=== PATIENT | female | born 1945 | race Caucasian/White ===

== ENCOUNTER 2019-01-14 02:46 | Emergency (ER) | payer MEDICARE, OTHER ==
[~2019-01-14] VITALS: Ht 170.2 cm; Wt 81.6 kg
[2019-01-14] MEDS ORDERED: METHYLPREDNISOLONE SOD SUCC 125 MG/2ML VIAL IV STA (02:51)
[2019-01-14] MEDS ORDERED: SODIUM CHLORIDE 0.9% 1000ML 1,000 ML IV STA (02:51)
[2019-01-14 03:00] LABS: BASOPHILS % 0.5 % (0.0-1.0); EOSINOPHILS # (AUTO) 0.1 (0.0-0.4); EOSINOPHILS % 1.8 % (0.0-6.0); HEMATOCRIT 40.1 % (34.2-44.1); HEMOGLOBIN 12.6 g/dL (12.0-16.0); LYMPHOCYTES # (AUTO) 2.1 (1.0-3.2); LYMPHOCYTES % 26.8 % (18.0-39.1); MEAN CORPUSCULAR HEMOGLOBIN 28.8 pg (28-32); MEAN CORPUSCULAR HGB CONC 31.4 g/dL (31-35); MEAN CORPUSCULAR VOLUME 91.6 fL (81-99); MONOCYTES # (AUTO) 0.9 (0.2-0.8); MONOCYTES % 10.9 % (4.4-11.3); NEUTROPHILS # (AUTO) 4.7 (2.1-6.9); NEUTROPHILS % 59.6 % (38.7-80.0); PLATELET COUNT 295 x10e3/uL (140-360); RED BLOOD COUNT 4.38 x10e6/uL (3.6-5.1); RED CELL DISTRIBUTION WIDTH 14.1 % (11.7-14.4)
[2019-01-14] MEDS ORDERED: ALBUTEROL/IPRATROPIUM 3 ML NEB NEB ONE (03:00)
[2019-01-14 03:07] LABS: INR 0.81; PROTHROMBIN TIME 11.6 seconds (11.9-14.5)
[2019-01-14 03:08] LABS: PARTIAL THROMBOPLASTIN TIME 28.9 seconds (23.8-35.5)
[2019-01-14 03:17] LABS: ALBUMIN 3.6 g/dL (3.5-5.0); ALBUMIN/GLOBULIN RATIO 1.2 (0.8-2.0); CALCIUM 9.4 mg/dL (8.4-10.2); CREATININE, SERUM 0.92 mg/dL (0.57-1.11); MAGNESIUM 2.2 MG/DL (1.3-2.1)
[2019-01-14 03:24] LABS: CREATINE KINASE MB 2.5 ng/mL (0-5.0)
[2019-01-14 03:27] LABS: BILIRUBIN,URINE NEGATIVE (NEGATIVE); CLARITY,URINE SL CLOUDY (CLEAR); COLOR,URINE YELLOW (YELLOW); KETONES,URINE NEGATIVE (NEGATIVE); LEUKOCYTE ESTERASE ,URINE MODERATE (NEGATIVE); NITRITE,URINE NEGATIVE (NEGATIVE); PROTEIN,URINE DIPSTICK NEGATIVE (NEGATIVE); URINE UROBILINOGEN 0.2 mg/dL (0.2 - 1)
[2019-01-14 03:37] LABS: B-TYPE NATRIURETIC PEPTIDE2 23.5 pg/mL (0-100)
[2019-01-14 03:38] LABS: BACTERIA,URINE FEW /HPF; EPITHELIAL CELLS,URINE FEW /LPF; TRANSITIONAL EPI CELLS,URINE MANY; WBC,URINE (MAN) >50 /HPF (0-5)
--- NOTE | 2019-01-14 03:53 | Diagnostic Imaging Report ---
EXAMINATION: CHEST 2 VIEWS INDICATION: SOB and COUGH COMPARISON: . FINDINGS: TUBES and LINES: None. LUNGS: The lungs are hyperinflated consistent with emphysema. Mild coarsening of the pulmonary interstitium bilaterally. Mild prominence of the central pulmonary vasculature bilaterally. PLEURA: No pleural effusion or pneumothorax. HEART AND MEDIASTINUM: Cardiac size is mildly enlarged. BONES AND SOFT TISSUES: No acute osseous lesion. Soft tissues are unremarkable. UPPER ABDOMEN: No free air under the diaphragm. IMPRESSION: 1. Bilateral pulmonary disease/COPD. 2. Mild bilateral pulmonary venous congestion. Signed by: Dr. Richie Arreguin M.D. on 01/14/2019 3:50 AM
[2019-01-14] MEDS ORDERED: CEFTRIAXONE SOD 1 GM/NS 50 ML 50 ML IV ONE (04:00)
[2019-01-14 04:23] VITALS: BP 111/53
== END 2019-01-14 04:32 | disposition home or self-care (01) ==
LOC: ER 02:46
DX: J44.1 Chronic obstructive pulmonary disease with (acute) exacerbation (principal); N30.91 Cystitis, unspecified with hematuria; I10 Essential (primary) hypertension; E78.5 Hyperlipidemia, unspecified; Z99.81 Dependence on supplemental oxygen; Z87.891 Personal history of nicotine dependence
CPT/HCPCS: 36415; 71046; 80053; 81001; 82550; 82553; 83605; 83735; 83880; 84484; 85025; 85610; 85730; 87040; 87086; 93005; 94640; 96374; 99284; J0696; J2930; J7030

== ENCOUNTER 2019-08-21 12:25 | Observation (INO) | payer OTHER ==
[~2019-08-21] VITALS: Ht 170.2 cm; Wt 81.6 kg
[~2019-08-21 12:25] MED LIST: ALBUTEROL0.63 MG/3 NEB; AZELASTINE137 MCG/0.; CALAN SR120 MG PO; COMBIVENT RESPIM4 GM; ECOTRIN325 MG PO; ENALAPRIL MALE2.5 MG; ENALAPRIL MALEA20 MG PO; IPRATROPIUM BROMIDE IH; PULMICORT90 MCG/AER INH; SEREVENT DISKU50 MCG INH; SIMVASTATIN20 MG PO; VENTOLIN HFA18 GM INH
--- OUTSIDE RECORDS SUMMARY | 2019-08-21 12:30 | XMS REPORT ---
Author Author [facility] t Organization [facility] Address [address] [place] [id number] Phone Unavailable Care Team Providers Care Solar Energy Specialist Name Role Phone NO, PCP PCP Unavailable Milton TIMMONS Attphys Unavailable Melissa MALONE Attphys Unavailable Payers Payer Name Policy Type Policy Number Effective Date Expiration Date Lizzy Ramachandran [id number] 2015 00:00:00 [facility] [employer] [id number] [facility] Problems Condition Name Condition Details Condition Category Status Onset Date Resolution Date Last Treatment Date Treating Clinician Comments Source Sensorineural hearing loss, bilateral Sensorineural hearing loss, bilateral Disease Active 2016-12-24 00:00:00 Alberto Harris Hearing loss Hearing loss Disease Active 2016-12-24 00:00:00 Alberto Harris Allergies, Adverse Reactions, Alerts Allergy Name Allergy Type Status Severity Reaction(s) Onset Date Inacti ve Date Treating Clinician Comments Source Codeine Propensity to adverse reactions to drug Active 2016-12-24 00:00:00 Alberto Harris Codeine Allergy to Substance Active Mild HIVES 2015-07-17 00:00:00 [facility] Social History Social Habit Start Date Stop Date Quantity Comments Source Sex Assigned At Dany chandharvey Harris Alcohol intake 2016-12-24 00:00:00 2016-12-24 00:00:00 Current non-drinker of alcohol (finding) Alberto Harris Smoking Status Start Date Stop Date Source Former smoker 2016-12-24 00:00:00 2016-12-24 00:00:00 Alberto Harris Medications Ordered Medication Name Filled Medication Name Start Date Stop Da te Current Medication? Ordering Clinician Indication Dosage Frequency Signature (SIG) Comments Components Source azelastine-fluticasone (DYMISTA) 137-50 mcg/spray spray,non- aerosol 2016-12-24 15:01:18 Yes 1{spray} Q.5D 1 spray by Each Nare route 2 (two) times a day. Alberto Harris salmeterol (SEREVENT) 50 mcg/dose diskus inhaler 2016-12-24 15:01:18 Yes 1{puff} Q.5D Inhale 1 puff 2 (two) times a day. Alberto Harris albuterol (ACCUNEB) 2.5 mg /3 mL (0.083 %) nebulizer solutio n 2016-12-24 15:01:18 Yes 2.5mg Q6H Take 2.5 m g by nebulization every 6 (six) hours as needed for wheezing. Alberto Harris PULMICORT FLEXHALER 180 mcg/actuation inhaler 2016-12-14 00:00:0 0 Yes Alberto Valente t rsyyrgor-emfoslfpn-IW (CORTISPORIN) 3.5- 10,000-1 mg/mL-unit/mL-% otic suspension 2016-12-08 00:00:00 Yes Alberto Harris simvastatin (ZOCOR) 10 MG tablet 2016-10-23 00:00:00 Yes Alberto Harris verapamil extended-release (VERELAN) 180 MG 24 hr capsule 2016-10-23 00:00:00 Yes Alberto Harris azelastine (ASTELIN) 137 mcg (0.1 %) nasal spray 2016-10-02 00:00:00 Yes Alberto Bhat ist Procedures Procedure Date / Time Performed Performing Clinician [facility] e X-ray of chest, two views 2019-01-14 00:00:00 SHEA MALONE CH [facility] Plan of Care Planned Activity Planned Date Details Comments Source Future Scheduled Test 2019-11-06 00:00:00 INFLUENZA VACCINE [code = INFLUENZA VACCINE] Alberto Harris Future Scheduled Test 2008-11-21 00:00:00 65+ PNEUMOCOCCAL V ACCINE (1 of 2 - PCV13) [code = 65+ PNEUMOCOCCAL VACCINE (1 of 2 - PCV13)] [facility] Future Scheduled Test 1993-11-21 00:00:00 BREAST CANCER SCRE ENING [code = BREAST CANCER SCREENING] [facility] Future Scheduled Test 1993-11-21 00:00:00 COLONOSCOPY SCREEN ING [code = COLONOSCOPY SCREENING] [facility] Future Scheduled Test 1993-11-21 00:00:00 SHINGLES VACCINES (#1) [code = SHINGLES VACCINES (#1)] [facility] Encounters Start Date/Time End Date/Time [facility] ID Source 2019-01-14 02:46:00 2019-01-14 04:32:00 Departed Emergency Room 1 SHEA MALONE [facility] [id number] [facility] Results Test Description Test Time Test Comments Results Result Comments Source CHEST 2 VIEWS 2019-04-21 15:45:00 [facility] [address] [place] [address] Patient Name: ISAMAR CALDERA MR #: [id number] : 1945 Age/Sex: 73/F Req #: [id number] Adm Physician: Ordered by: CAITLYN TIMMONS MD Report #: [id number] Location: OR Room/Bed: Procedure: [id number] DX/CHEST 2 VIEWS Exam Date: Exam Time: REPORT STATUS: Signed EXAMINATION: CHEST 2 VIEWS INDICATION: Pre- operative COMPARISON: Chest are graft and 01/24/2019 FINDINGS: LINES/TUBES:None LUNGS:The lungs are hyperinflated. A lateral upper lobe predominant emphysematous changes. No focal consolidation or pulmonary edema. PLEURA:No pleural effusion or pneumothorax. MEDIASTINUM:The cardiomediastinal silhouette appears unchanged in size and shape. BONES/SOFT TISSUES:No acute osseous injury. ABDOMEN:No free air under the diaphragm. IMPRESSION: Hyperinflated lungs with emphysematous changes. No focal pneumonia or pulmonary edema. Signed by: Kayla Kemp MD on 04/21/2019 3:46 PM Dictated By: KAYLA KEMP MD 45 Transcribed By: LISETTE on 04/21/191545 COPY TO: CAITLYN TIMMONS MD CHEST 2 VIEWS 2019-01-14 03:40:00 [place] [address] Patient Name: ISAMAR CALDERA MR #: [id number] : 1945 Age/Sex: 73/F Req #: [id number] Adm Physician: Ordered by: SHEA MALONE MD Report #: [id number] Location: ER Room/Bed: Procedure: [id number] DX/CHEST 2 VIEWS Exam Date: 01/14/19 Exam Time: 0327 REPORT STATUS: Signed EXAMINATION: CHEST 2 VIEWS INDICATION: SOB and COUGH COMPARISON: . FINDINGS: TUBES and LINES: None. LUNGS: The lungs are hyperinflated consistent with emphysema. Mild coarsening of the pulmonary interstitium bilaterally. Mild prominence of the central pulmonary vasculature bilaterally. PLEURA: No pleural effusion or pneumothorax. HEART AND MEDIASTINUM: Cardiac size is mildly enlarged. BONES AND SOFT TISSUES: No acute osseous lesion. Soft tissues are unremarkable. UPPER ABDOMEN: No free air under the diaphragm. IMPRESSION: 1. Bilateral pulmonary disease/COPD. 2. Mild bilateral pulmonary venous congestion. Signed by: Dr. Richie Soria M.D. on 01/14/2019 3:50 AM Dictated By: STAR SORIA MD, MD 9 Transcribed By: LISETTE on 01/14/19349 COPY TO: SHEA MALONE MD B-Type Natriuretic Peptide 2019-01-14 03:39:00 Test Item B-Type Natriuretic Peptide (test code = 42108-1) 23.5 0-100 [facility] [id number] 03:38:00* Test Item Value Reference Range Interpretation Comments Urine WBC (test code = 5821-4) >50 0-5 [facility] [id number] 03:38:00* Test Item Value Reference Range Interpretation Comments Urine RBC (test code = 26313-6) 6-10 0-5 [facility] Brluzrjz0678-43-63 03:38:00* Test Item Value Reference Range Interpretation Comments Urine Bacteria (test code = 61561-4) FEW NONE [facility] Epithelial Qlcuz7633-20-09 03:38:00 * Test Item Value Reference Range Interpretation Comments Urine Epithelial Cells (test code = 50064-4) FEW NONE [facility] Transitional Epithelial Cells 2019-01-14 03:38:00* Test Item Value Reference Range Interpretation Comments Urine Transitional Epithelial Cells (test code = 8249-5) MANY NONE [facility] Diisp4740-39-36 03:28:00* Test Item Value Reference Range Interpretation Comments Urine Color (test code = 5778-6) YELLOW YELLOW [facility] Lnwyrcc7419-29-13 03:28:00* Test Item Value Reference Range Interpretation Comments Urine Clarity (test code = 89001-8) SL CLOUDY CLEAR [facility]st[facility] Specific Ocyurdb8059-11-41 03:28:00 * Test Item Value Reference Range Interpretation Comments Urine Specific [place] (test code = 5811-5) 1.020 1.010-1.02 5 [facility] [id number] 03:28:00* Test Item Value Reference Range Interpretation Comments Urine pH (test code = 56401-3) 6 5-7 [facility] Leukocyte Rqruutfo2696-25-10 03:28:00* Test Item Value Reference Range Interpretation Comments Urine Leukocyte Esterase (test code = 51873-6) MODERATE NEGATIV E [facility] Aqzpsms8832-51-61 03:28:00* Test Item Value Reference Range Interpretation Comments Urine Nitrite (test code = 70795-8) NEGATIVE NEGATIVE [facility] Mwtlwlq4173-89-25 03:28:00* Test Item Value Reference Range Interpretation Comments Urine Protein (test code = 81957-1) NEGATIVE NEGATIVE [facility] Glucose (UA)2019-01-14 03:28:00* Test Item Value Reference Range Interpretation Comments Urine Glucose (UA) (test code = 65648-7) NEGATIVE NEGATIVE [facility] Asxsrqs5491-07-81 03:28:00* Test Item Value Reference Range Interpretation Comments Urine Ketones (test code = 01298-2) NEGATIVE NEGATIVE [facility] Xflcftleflti6151-09-13 03:28:00* Test Item Value Reference Range Interpretation Comments Urine Urobilinogen (test code = 11128-7) 0.2 0.2-1 [facility] Xutpoeern5783-80-94 03:28:00* Test Item Value Reference Range Interpretation Comments Urine Bilirubin (test code = 1977-8) NEGATIVE NEGATIVE [facility] Dxaib2004-95-33 03:28:00* Test Item Value Reference Range Interpretation Comments Urine Blood (test code = 76350-5) NEGATIVE NEGATIVE [facility]stCreatine Kinase [id number] 03:28:00* Test Item Value Reference Range Interpretation Comments Creatine Kinase MB (test code = 71258-3) 2.50 0-5.0 [facility]stTroponin [id number] 03:28:00* Test Item Value Reference Range Interpretation Comments Troponin I (test code = WSA8517) 0.004 0-0.300 [facility] Wkbil0662-75-04 03:20:00* Test Item Value Reference Range Interpretation Comments Sodium Level (test code = 2951-2) 139 136-145 [facility]stPotassium Plejv3629-56-12 03:20:00* Test Item Value Reference Range Interpretation Comments Potassium Level (test code = 2823-3) 4.0 3.5-5.1 [facility]stChloride Soksg5361-36-78 03:20:00* Test Item Value Reference Range Interpretation Comments Chloride Level (test code = 2075-0) 102 98-107 [facility]stCarbon Dioxide Mpzbr3918-38-05 03:20:00* Test Item Value Reference Range Interpretation Comments Carbon Dioxide Level (test code = 2028-9) 27 22-29 [facility]stAnion Vbd6048-11-36 03:20:00* Test Item Value Reference Range Interpretation Comments Anion Gap (test code = 84062-7) 14.0 8-16 [facility]stBlood Urea Lnavbnie4135-88-93 03:20:00* Test Item Value Reference Range Interpretation Comments Blood Urea Nitrogen (test code = 3094-0) 13 7-26 [facility]stCreatinine2019-10-10 03:20:00* Test Item Value Reference Range Interpretation Comments Creatinine (test code = 2160-0) 0.92 0.57-1.11 [facility]stBUN/Creatinine Fmyee2329-47-31 03:20:00* Test Item Value Reference Range Interpretation Comments BUN/Creatinine Ratio (test code = 3097-3) 14 6-25 [facility] HillcrestEstimat Glomerular Filtration Rate 2019-01-14 03:20:00* Test Item Value Reference Range Interpretation Comments Estimat Glomerular Filtration Rate (test code = 588274581) 60 >60 Ranges were taken from the National Kidney Disease Education Program and the [facility] Kid[facility] Foundation literature.Reference ranges:60 or greater: Mrgglv99-76 ( for 3 consecutive months): Chronic kidney disease 15 or less: Kidney failureBaylor Scott & White Medical Center – HillcrestGlucose Ilmmd7055-30-62 03:20:00* Test Item Value Reference Range Interpretation Comments Glucose Level (test code = WYR5266) 127 74-118 [facility]stCalcium Oxbnz4378-03-13 03:20:00* Test Item Value Reference Range Interpretation Comments Calcium Level (test code = 67768-1) 9.4 8.4-10.2 [facility] Hill[facility]stLactic Acid Rntix9816-14-81 03:20:00* Test Item Value Reference Range Interpretation Comments Lactic Acid Level (test code = Lactic Acid Level) 13.4 4.5- 19.8 [facility] Hill[facility]stMagnesium Betnz9576-00-57 03:20:00* Test Item Value Reference Range Interpretation Comments Magnesium Level (test code = 28986-8) 2.2 1.3-2.1 [facility] Hill[facility]stTointermountain healthcare Ummddlsmu2666-56-64 03:20:00* Test Item Value Reference Range Interpretation Comments Total Bilirubin (test code = 1975-2) 0.4 0.2-1.2 [facility] Hill[facility]stAspartate Amino Transf (AST/SGOT) 2019-01-14 03:20:00* Test Item Value Reference Range Interpretation Comments Aspartate Amino Transf (AST/SGOT) (test code = Aspartate Amino Transf (AST/SGOT)) 17 5-34 [facility] Hill[facility]stAlanine Aminotransferase (ALT/SGPT) 2019-01-14 03:20:00* Test Item Value Reference Range Interpretation Comments Alanine Aminotransferase (ALT/SGPT) (test code = 1742-6) 14 0-55 [facility] Hill[facility]stTotal Qsrpjzn3595-39-02 03:20:00* Test Item Value Reference Range Interpretation Comments Total Protein (test code = 2885-2) 6.7 6.5-8.1 [facility] Hill[facility]stAlbumin2019-10-10 03:20:00* Test Item Value Reference Range Interpretation Comments Albumin (test code = 1751-7) 3.6 3.5-5.0 [facility] Hill[facility]stGlobulin2019-10-10 03:20:00* Test Item Value Reference Range Interpretation Comments Globulin (test code = 31665-9) 3.1 2.3-3.5 [facility]stAlbumin/Globulin Svrst3541-96-22 03:20:00 * Test Item Value Reference Range Interpretation Comments Albumin/Globulin Ratio (test code = 1759-0) 1.2 0.8-2.0 [facility] Hill[facility]stAlkaline Jimtylmpfjt3470-93-61 03:20:00* Test Item Value Reference Range Interpretation Comments Alkaline Phosphatase (test code = 6768-6) 47 40-150 [facility]stCreatine Ykxbyv3611-47-34 03:20:00* Test Item Value Reference Range Interpretation Comments Creatine Kinase (test code = 2157-6) 151 29-168 [facility] HillcrestActivated Partial Thromboplast Time 2019-01-14 03:09:00* Test Item Value Reference Range Interpretation Comments Activated Partial Thromboplast Time (test code = 76704-1) 28.9 23.8-35.5 [facility] Hill[facility]stProthrombin Xztp5465-46-97 03:07:00* Test Item Value Reference Range Interpretation Comments Prothrombin Time (test code = 5902-2) 11.6 11.9-14.5 [facility] Hill[facility]stProthromb Time International Ratio 2019-01-14 03:07:00* Test Item Value Reference Range Interpretation Comments Prothromb Time International Ratio (test code = 6301-6) 0.81 Oral Anticoagulant Therapy INR Values:1. Low Intensity Therapy 1.5 - 2.02 . Moderate Intensity Therapy 2.0 - 3.03. High Intensity Therapy(1) 2.5 - 3. 54. High Intensity Therapy(2) 3.0 - 4.05. Panic Value INR > 5.0 [facility] Hill[facility]stWhite Blood Sgtua2613-63-86 03:04:00* Test Item Value Reference Range Interpretation Comments White Blood Count (test code = 6690-2) 7.86 4.8-10.8 [facility] Hill[facility]stRed Blood Ocxov7453-26-50 03:04:00* Test Item Value Reference Range Interpretation Comments Red Blood Count (test code = 789-8) 4.38 3.6-5.1 [facility] Hill[facility]stHemoglobin2019-10-10 03:04:00* Test Item Value Reference Range Interpretation Comments Hemoglobin (test code = 92621-0) 12.6 12.0-16.0 [facility] Hill[facility]stHematocrit2019-10-10 03:04:00* Test Item Value Reference Range Interpretation Comments Hematocrit (test code = 4544-3) 40.1 34.2-44.1 [facility] HillcrestMean Corpuscular Ohfhit5644-17-33 03:04:00* Test Item Value Reference Range Interpretation Comments Mean Corpuscular Volume (test code = 787-2) 91.6 81-99 [facility] Hill[facility]stMean Corpuscular Kamjkkaltg7667-82-47 03:04:00* Test Item Value Reference Range Interpretation Comments Mean Corpuscular Hemoglobin (test code = 785-6) 28.8 28-32 [facility] HillcrestMean Corpuscular Hemoglobin Concent 2019-01-14 03:04:00* Test Item Value Reference Range Interpretation Comments Mean Corpuscular Hemoglobin Concent (test code = 786-4) 31.4 31-35 [facility] Hill[facility]stRed Cell Distribution Mkfzb4366-31-93 03:04:00* Test Item Value Reference Range Interpretation Comments Red Cell Distribution Width (test code = 68837-5) 14.1 11.7 -14.4 [facility] HillcrestPlatelet Vjdcm8209-92-37 03:04:00* Test Item Value Reference Range Interpretation Comments Platelet Count (test code = 777-3) 295 140-360 [facility] HillcrestNeutrophils (%) (Auto)2019-01-14 03:04:00 * Test Item Value Reference Range Interpretation Comments Neutrophils (%) (Auto) (test code = 57654-8) 59.6 38.7-80.0 [facility] HillcrestLymphocytes (%) (Auto)2019-01-14 03:04:00 * Test Item Value Reference Range Interpretation Comments Lymphocytes (%) (Auto) (test code = 736-9) 26.8 18.0-39.1 [facility] Hill[facility]stMonocytes (%) (Auto)2019-01-14 03:04:00* Test Item Value Reference Range Interpretation Comments Monocytes (%) (Auto) (test code = 5905-5) 10.9 4.4-11.3 [facility]stEosinophils (%) (Auto)2019-01-14 03:04:00 * Test Item Value Reference Range Interpretation Comments Eosinophils (%) (Auto) (test code = 713-8) 1.8 0.0-6.0 [facility]stBasophils (%) (Auto)2019-01-14 03:04:00* Test Item Value Reference Range Interpretation Comments Basophils (%) (Auto) (test code = 706-2) 0.5 0.0-1.0 [facility] Hill[facility]stIM GRANULOCYTES %2019-01-14 03:04:00* Test Item Value Reference Range Interpretation Comments IM GRANULOCYTES % (test code = IM GRANULOCYTES %) 0.4 0.0- 1.0 [facility]stNeutrophils # (Auto)2019-01-14 03:04:00* Test Item Value Reference Range Interpretation Comments Neutrophils # (Auto) (test code = 751-8) 4.7 2.1-6.9 [facility]stLymphocytes # (Auto)2019-01-14 03:04:00* Test Item Value Reference Range Interpretation Comments Lymphocytes # (Auto) (test code = 00134-9) 2.1 1.0-3.2 [facility]stMonocytes # (Auto)2019-01-14 03:04:00* Test Item Value Reference Range Interpretation Comments Monocytes # (Auto) (test code = 742-7) 0.9 0.2-0.8 [facility]stEosinophils # (Auto)2019-01-14 03:04:00* Test Item Value Reference Range Interpretation Comments Eosinophils # (Auto) (test code = 711-2) 0.1 0.0-0.4 [facility]stBasophils # (Auto)2019-01-14 03:04:00* Test Item Value Reference Range Interpretation Comments Basophils # (Auto) (test code = 704-7) 0.0 0.0-0.1 [facility] Hill[facility]stAbsolute Immature Granulocyte (auto 2019-01-14 03:04:00* Test Item Value Reference Range Interpretation Comments Absolute Immature Granulocyte (auto (jesse t code = Absolute Immature Granulocyte (auto) 0.03 0-0.1 [facility]
--- OUTSIDE RECORDS SUMMARY | 2019-08-21 12:30 | XMS REPORT | Clinical Summary ---
Author Author [facility] Address Unknown Phone Unavailable Care Team Providers Care Time Cycle Operator Name Role Phone Alex Jackson MD PCP Allergies Comments Active Allergy Reactions Severity Noted Date Codeine 12/24/2016 Medications End Date Status Medication Sig Dispensed Refills Start Date Active simvastatin (ZOCOR) 10 MG 0 tablet 7 Active verapamil 0 extended-release 7 (VERELAN) 180 MG 24 hr capsule Active PULMICORT FLEXHALER 180 0 mcg/actuation inhaler 7 Active gtqvulte-ydrroeayd-NX 0 (CORTISPORIN) 7 3.5-10,000-1 mg/mL-unit/mL-% otic suspension Active azelastine (ASTELIN) 137 0 mcg (0.1 %) nasal spray 7 Active azelastine-fluticasone 1 spray by 0 (DYMISTA) 137-50 Each Nare mcg/spray route 2 (two) spray,non-aerosol times a day. Active salmeterol (SEREVENT) 50 Inhale 1 puff 0 mcg/dose diskus inhaler 2 (two) times a day. Active albuterol (ACCUNEB) 2.5 Take 2.5 mg 0 mg /3 mL (0.083 %) by nebulizer solution nebulization every 6 (six) hours as needed for wheezing. Active Problems Problem Noted Date Sensorineural hearing loss, bilateral 12/24/2016 Hearing loss 12/24/2016 Social History Date Tobacco Use Types Packs/Day Years Used Former Smoker Drinks/Week oz/Week Comments Alcohol Use No Sex Assigned at Date Recorded Not on file Industry Job Start Date Occupation Not on file Not on file Not on file Travel End Travel History Travel Start No recent travel history available. Last Filed Vital Signs Not on file Plan of Treatment Health Maintenance Due Date Last Done Comments BREAST CANCER SCREENING 11/21/1993 COLONOSCOPY SCREENING 11/21/1993 SHINGLES VACCINES (#1) 11/21/1993 65+ PNEUMOCOCCAL VACCINE 11/21/2008 (1 of 2 - PCV13) INFLUENZA VACCINE 11/06/2019 Results Not on fileafter 08/20/2018 Insurance Type Payer Benefit Subscriber ID Effective Phone Address Plan / Dates Group HMO [employer] xxxxxxxxx 2016-[id number] [id number] Advance Directives For more information, please contact: [phone] Patient Hide Shaker Explanation Type Date Recorded Advance Directives, Living Will and Medical Power of Assistance Coordinator
[2019-08-21] MEDS ORDERED: METHYLPREDNISOLONE SOD SUCC 125 MG/2ML VIAL IV NR (13:00)
[2019-08-21] MEDS ORDERED: ALBUTEROL/IPRATROPIUM 3 ML NEB NEB NR (13:00)
[2019-08-21 14:01] LABS: BASOPHILS % 0.3 % (0.0-1.0); EOSINOPHILS # (AUTO) 0.1 (0.0-0.4); EOSINOPHILS % 0.4 % (0.0-6.0); HEMATOCRIT 35.2 % (34.2-44.1); HEMOGLOBIN 11.1 g/dL (12.0-16.0); LYMPHOCYTES # (AUTO) 0.8 (1.0-3.2); LYMPHOCYTES % 6.5 % (18.0-39.1); MEAN CORPUSCULAR HEMOGLOBIN 28.5 pg (28-32); MEAN CORPUSCULAR HGB CONC 31.5 g/dL (31-35); MEAN CORPUSCULAR VOLUME 90.5 fL (81-99); MONOCYTES # (AUTO) 1.3 (0.2-0.8); MONOCYTES % 11.1 % (4.4-11.3); NEUTROPHILS # (AUTO) 9.7 (2.1-6.9); NEUTROPHILS % 81.1 % (38.7-80.0); PLATELET COUNT 257 x10e3/uL (140-360); RED BLOOD COUNT 3.89 x10e6/uL (3.6-5.1); RED CELL DISTRIBUTION WIDTH 14.1 % (11.7-14.4)
[2019-08-21 14:08] LABS: ABG HCO3 30 mmol/L (22-26); ABG PCO2 51 mmHg (35-45); ABG PH 7.39 (7.35-7.45)
[2019-08-21 14:22] LABS: ALANINE AMINOTRANSFERASE 12 IU/L (0-55); ALBUMIN/GLOBULIN RATIO 0.8 (0.8-2.0); ALKALINE PHOSPHATASE 55 IU/L (40-150); ANION GAP 15.8 mmol/L (8-16); BLOOD UREA NITROGEN 28 mg/dL (7-26); BUN/CREATININE RATIO 23 (6-25); CALCIUM 9.5 mg/dL (8.4-10.2); CARBON DIOXIDE 26 mmol/L (22-29); CHLORIDE 97 mmol/L (98-107); CREATINE KINASE 73 IU/L (29-168); EST GLOMERULAR FILTRATION RATE 44 ML/MIN (60-); GLUCOSE 120 mg/dL (74-118); POTASSIUM 3.8 mmol/L (3.5-5.1); SODIUM 135 mmol/L (136-145)
--- NOTE | 2019-08-21 15:30 | Emergency Department Note ---
History of Present Illnes History of Present Illness Chief Complaint: Respiratory History of Present Illness This is a 73 year old female arrived to the ED with complaints of SOB for several days. Chief Complaint Comment HERE FOR SHORTNESS OF BREATH WORSE ON EXERTION, HISTORY OF COPD. ON 4 LPM O2 AND SATURATING AT 92%. DENIES COUGH, FEVER AT HOME. Historian: Patient Arrival Mode: Car Onset (how long ago): day(s) Radiation: non-radiation, back, neck, extremity, abdomen, periumbilical, flank, proximal, distal, other Onset quality: gradual Duration (how long): day(s) Past Medical/Family History Physician Review I have reviewed the patient's past medical and family history. Any updates have been documented here. Past Medical History Recent Fever: No Clinical Suspicion of Infectio: No New/Unexplained Change in Ment: No Past Medical History: Hypertension, COPD Other Medical History: HIGH CHOLESTEROL Past Surgical History: Appendectomy Social History Smoking Cessation: Former smoker Counseling Performed: No Alcohol Use: None Any Illegal Drug Use: No TB Exposure/Symptoms: No Physically hurt or threatened: No Other Last Tetanus: UNK Any Pre-Existing Lines (PICC,: No Is patient up to date on immun: Yes Last Flu: UTD Last Pneumovax: UTD Review of Systems Review of Systems Review of other systems All other systems reviewed and negative. Physical Exam Related Data Allergies: Coded Allergies: codeine (Verified Allergy, Mild, HIVES, 07/17/15) Triage Vital Signs Vital Signs Date Time Temp Pulse Resp B/P (MAP) Pulse Ox O2 Delivery O2 Flow Rate FiO2 08/21/19 12:54 98.4 98 20 96/50 92 08/21/19 13:25 4.0 Physical Exam CONSTITUTIONAL HENT EYES NECK PULMONARY CARDIOVASCULAR GASTROINTESTINAL GENITOURINARY SKIN MUSCULOSKELETAL NEUROLOGICAL PSYCHOLOGICAL Results Laboratory Result Diagram: 08/21/19 1329 08/21/19 1329 Laboratory Laboratory Tests Test 08/21/19 13:35 08/21/19 13:29 Arterial Blood Partial Pressure O2 mmHg (80-105) Arterial Blood Oxygen Saturation % (95-98) White Blood Count 11.98 x10e3/uL (4.8-10.8) Red Blood Count 3.89 x10e6/uL (3.6-5.1) Hemoglobin 11.1 g/dL (12.0-16.0) Hematocrit 35.2 % (34.2-44.1) Mean Corpuscular Volume 90.5 fL (81-99) Mean Corpuscular Hemoglobin 28.5 pg (28-32) Mean Corpuscular Hemoglobin Concent 31.5 g/dL (31-35) Red Cell Distribution Width 14.1 % (11.7-14.4) Platelet Count 257 x10e3/uL (140-360) Neutrophils (%) (Auto) 81.1 % (38.7-80.0) Lymphocytes (%) (Auto) 6.5 % (18.0-39.1) Monocytes (%) (Auto) 11.1 % (4.4-11.3) Eosinophils (%) (Auto) 0.4 % (0.0-6.0) Basophils (%) (Auto) 0.3 % (0.0-1.0) Neutrophils # (Auto) 9.7 (2.1-6.9) Lymphocytes # (Auto) 0.8 (1.0-3.2) Monocytes # (Auto) 1.3 (0.2-0.8) Eosinophils # (Auto) 0.1 (0.0-0.4) Basophils # (Auto) 0.0 (0.0-0.1) Absolute Immature Granulocyte (auto 0.07 x10e3/uL (0-0.1) Sodium Level 135 mmol/L (136-145) Potassium Level 3.8 mmol/L (3.5-5.1) Chloride Level 97 mmol/L (98-107) Carbon Dioxide Level 26 mmol/L (22-29) Anion Gap 15.8 mmol/L (8-16) Blood Urea Nitrogen 28 mg/dL (7-26) Creatinine 1.20 mg/dL (0.57-1.11) Estimat Glomerular Filtration Rate 44 ML/MIN (60-) BUN/Creatinine Ratio 23 (6-25) Glucose Level 120 mg/dL (74-118) Calcium Level 9.5 mg/dL (8.4-10.2) Total Bilirubin 0.9 mg/dL (0.2-1.2) Aspartate Amino Transf (AST/SGOT) 15 IU/L (5-34) Alanine Aminotransferase (ALT/SGPT) 12 IU/L (0-55) Alkaline Phosphatase 55 IU/L (40-150) Creatine Kinase 73 IU/L (29-168) Creatine Kinase MB 0.90 ng/mL (0-5.0) Troponin I < 0.001 ng/mL (0-0.300) B-Type Natriuretic Peptide 32.1 pg/mL (0-100) Total Protein 6.9 g/dL (6.5-8.1) Albumin 3.0 g/dL (3.5-5.0) Globulin 3.9 g/dL (2.3-3.5) Albumin/Globulin Ratio 0.8 (0.8-2.0) Critical Care Time Subsequent provider I assumed direction of critical care for this patient from another provider of my specialty. Assessment & Plan Last Vital Signs Date Time Temp Pulse Resp B/P (MAP) Pulse Ox O2 Delivery O2 Flow Rate FiO2 08/21/19 14:14 85 20 112/49 100 08/21/19 13:25 4.0 08/21/19 12:54 98.4 Home Meds Reported Medications Albuterol Sulfate (ALBUTEROL SULFATE) 0.63 Mg/3 Ml Vial.neb, NEB PRN 04/21/19 Enalapril Maleate (ENALAPRIL MALEATE) 20 Mg Tablet, 10 MG PO HS 04/21/19 Aspirin (ECOTRIN) 325 Mg Tablet.dr, 325 MG PO HS 04/21/19 Simvastatin (SIMVASTATIN) 20 Mg Tablet, 10 MG PO 2100, EA 04/21/19 Verapamil Hcl (CALAN SR) 120 Mg Tablet.er, 150 MG PO DAILY, #30 TAB 04/21/19 Azelastine Hcl (AZELASTINE HCL) 137 Mcg/0.137 Ml [place].pump, 1 PUMP NA DAILY 04/21/19 Ipratropium/Albuterol Sulfate (COMBIVENT RESPIMAT INHAL SPRAY) 4 Gm Aer.w.adap, 0.03 NA BID, INH 04/21/19 Albuterol Sulfate (VENTOLIN HFA) 18 Gm Hfa.aer.ad, 1 PUMP INH PRN 04/21/19 Budesonide (PULMICORT FLEXHALER) 90 Mcg/Aer Pow Ba Inh, 1 PUMP INH BID 04/21/19 Salmeterol Xinafoate (SEREVENT DISKUS) 50 Mcg Disk.w.dev, 2 PUMP INH DAILY 04/21/19 Medications in the ED Albuterol/ Ipratropium 9 ml ONCE NEB Last administered on 08/21/19at 13:35; Admin Dose 9 ML; Start 08/21/19 at 13:00; Stop 08/21/19 at 14:59 Methylprednisolone Sodium Succinate 125 mg ONCE IV Last administered on 08/21/19at 13:30; Admin Dose 125 MG; Start 08/21/19 at 13:00; Stop 08/21/19 at 14:00; Status DC RIN ESPINOZA DO August 21, 2019 15:30
[2019-08-21] MEDS ORDERED: ALBUTEROL SULF 0.083% NEB SOLN 3 ML NEB NEB NR (15:40)
[2019-08-21] MEDS ORDERED: ALBUTEROL SULF 0.083% NEB SOLN 3 ML NEB ONE (15:54)
--- NOTE | 2019-08-21 15:57 | Diagnostic Imaging Report ---
EXAMINATION: CHEST SINGLE (PORTABLE) INDICATION: ^Y ^SOB ^[id number] ^[id number] COMPARISON: Chest radiograph 04/21/2019 FINDINGS: AP view TUBES and LINES: None. LUNGS: Lungs are well inflated. Wedge-shaped subpleural consolidation in the right upper lobe, measuring up to 5.5 cm, new since 04/21/2019. Mild bilateral emphysematous changes. PLEURA: No pleural effusion or pneumothorax. HEART AND MEDIASTINUM: The cardiac silhouette is mildly enlarged. Fullness of the right hilar concerning for lymphadenopathy. BONES AND SOFT TISSUES: No acute osseous lesion. Soft tissues are unremarkable. UPPER ABDOMEN: No free air under the diaphragm. IMPRESSION: Subpleural right upper lobe consolidation/masslike with fullness of the right hilar may relate to malignancy, pulmonary infarct, or atypical viral pneumonia. Recommend further evaluation with CT chest PE protocol. Signed by: Dr. Martina Ratliff M.D. on 08/21/2019 3:53 PM
[2019-08-21] MEDS ORDERED: SODIUM CHLORIDE 0.9% 1000ML 1,000 ML IV STA (17:50)
[2019-08-21] MEDS ORDERED: ALBUTEROL SULFATE HFA 8GM INHALATION AEROSOL INH PRN (18:15)
[2019-08-21] MEDS ORDERED: ALBUTEROL SULF 0.083% NEB SOLN 3 ML NEB NEB PRN (18:15)
[2019-08-21] MEDS ORDERED: SIMVASTATIN10 MG (18:47)
[2019-08-21] MEDS ORDERED: SODIUM CHLORIDE 0.9% 50ML 50 ML ONE (18:52)
[2019-08-21] MEDS ORDERED: IOPAMIDOL 370 MG/ML 200 ML INFUS..BTL INJ ONE (18:53)
[2019-08-21] MEDS: AZELASTINE HCL 137 MCG NASAL SPRAY NS SCH (19:00)
--- OUTSIDE RECORDS SUMMARY | 2019-08-21 19:07 | XMS REPORT | Clinical Summary ---
Author Author [facility] Organization [facility] Address Unknown Phone Unavailable Care Team Providers Care Technical Support 1 Software Engineer Name Role Phone Alex Jackson MD PCP Allergies Comments Active Allergy Reactions Severity Noted Date Codeine 12/24/2016 Medications End Date Status Medication Sig Dispensed Refills Start Date Active simvastatin (ZOCOR) 10 MG 0 tablet 7 Active verapamil 0 extended-release 7 (VERELAN) 180 MG 24 hr capsule Active PULMICORT FLEXHALER 180 0 mcg/actuation inhaler 7 Active zatbmtdm-nwsrdyosd-MR 0 (CORTISPORIN) 7 3.5-10,000-1 mg/mL-unit/mL-% otic suspension [...] HMO [employer] xxxxxxxxx 2016-[id number] [phone] Advance Directives For more information, please contact: [phone] 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
--- OUTSIDE RECORDS SUMMARY | 2019-08-21 19:07 | XMS REPORT ---
Author Author [facility] t Organization [facility] Address [address] [place] [id number] Phone Unavailable Care Team Providers Care Volleyball Referee Name Role Phone NO, PCP PCP Unavailable Nicholas BIRMINGHAM Attphys Unavailable Milton TIMMONS Attphys Unavailable Melissa MALONE Attphys Unavailable Payers Payer Name Policy Type Policy Number Effective Date Expiration Date Lizzy Ramachandran [id number] 2015 00:00:00 [facility] [employer] [id number] [facility] Problems Condition Name Condition Details Condition Category [...] to Substance Active Mild HIVES 2015-07-17 00:00:00 [facility] Social History Social Habit Start Date Stop Date Quantity Comments Source Sex Assigned At Dany Harris Alcohol intake 2016-12-24 00:00:00 2016-12-24 00:00:00 [...] mcg/actuation inhaler 2016-12-14 00:00:0 0 Yes Alberto armendariz xzmcvzrc-xmissreep-WR (CORTISPORIN) 3.5- 10,000-1 mg/mL-unit/mL-% otic suspension 2016-12-08 00:00:00 Yes Alberto Harris simvastatin (ZOCOR) 10 MG tablet 2016-10-23 00:00:00 Yes Alberto Harris verapamil extended-release (VERELAN) 180 MG 24 hr capsule 2016-10-23 00:00:00 Yes Alberto Harris azelastine (ASTELIN) 137 mcg (0.1 %) nasal spray 2016-10-02 00:00:00 Yes Alberto Bhat ist Procedures Procedure Date / Time Performed Performing Clinician [facility] X-ray of chest, two views 2019-01-14 00:00:00 SHEA MALONE CH, I [facility] Plan of Care Planned Activity Planned Date Details Comments Source Future Scheduled Test 2019-11-06 00:00:00 INFLUENZA VACCINE [code = INFLUENZA VACCINE] Alberto Harris Future Scheduled Test 2008-11-21 00:00:00 65+ PNEUMOCOCCAL V ACCINE (1 of 2 - PCV13) [code = 65+ PNEUMOCOCCAL VACCINE (1 of 2 - PCV13)] [employer] Future Scheduled Test 1993-11-21 00:00:00 BREAST CANCER SCRE ENING [code = BREAST CANCER SCREENING] [employer] Future Scheduled Test 1993-11-21 00:00:00 COLONOSCOPY SCREEN ING [code = COLONOSCOPY SCREENING] [employer] Future Scheduled Test 1993-11-21 00:00:00 SHINGLES VACCINES (#1) [code = SHINGLES VACCINES (#1)] [employer] Encounters Start Date/Time End Date/Time Encounter Type Admission Type Attendi [facility] Care Department Encounter ID Source 2019-01-14 02:46:00 2019-01-14 04:32:00 Departed Emergency Room 1 [facility] [id number] [facility] Results Test Description Test Time Test Comments Results Result Comments Source CHEST SINGLE (PORTABLE) 2019-08-21 15:52:00 [facility] [address] [place] [address] Patient Name: ISAMAR CALDERA MR #: [id number] : 1945 Age/Sex: 73/F Req #: [id number] Adm Physician: Ordered by: RIN ESPINOZA DO Report #: [id number] Location: ER Room/Bed: Procedure: [id number] DX/CHEST SINGLE (PORTABLE) Exam Date: 08/21/19 Exam Time: 1447 REPORT STATUS: Signed EXAMINATION: CHEST SINGLE (PORTABLE) INDICATION: Y SOB [id number] COMPARISON: Chest radiograph 04/21/2019 FINDINGS: AP view TUBES and LINES: None. LUNGS: Lungs are well inflated. Wedge-shaped subp leural consolidation in the right upper lobe, measuring up to 5.5 cm, new since 04/21/2019. Mild bilateral emphysematous changes. PLEURA: No pleural effusion or pneumothorax. HEART AND MEDIASTINUM: The cardiac silhouette is mildly enlarged. Fullness of the right hilar concerning for lymphadenopathy. BONES AND SOFT TISSUES: No acute osseous lesion. Soft tissues are unremarkable. UPPER ABDOMEN: No free air under the diaphragm. IMPRESSION: Subpleural right upper lobe consolidation/masslike with fullness of the right hilar may relate to malignancy, pulmonary infarct, or atypical viral pneumonia. Recommend further evaluation with CT chest PE protocol. Signed by: Dr. Martina Ratliff M.D. on 08/21/2019 3:53 PM Dictated By: MARTINA RATLIFF MD 52 Transcribed By: LISETTE on 08/21/191552 COPY TO: RIN ESPINOZA DO CHEST 2 VIEWS 2019-04-21 15:45:00 [place] [address] Patient Name: ISAMAR CALDERA MR #: [id number] : 1945 Age/Sex: 73/F Req #: [id number] Adm Physician: Ordered by: CAITLYN TIMMONS MD Report #: [id number] Location: OR Room/Bed: Procedure: [id number] DX/CHEST 2 VIEWS Exam Date: Exam Time: [...] TIMMONS MD CHEST 2 VIEWS 2019-01-14 03:40:00 [place] [address] Patient Name: ISAMAR CALDERA MR #: [id number] : 1945 Age/Sex: 73/F Req #: [id number] Adm Physician: Ordered by: SHEA MALONE MD Report #: [id number] Location: ER Room/Bed: Procedure: [id number] DX/CHEST 2 VIEWS Exam Date: 01/14/19 Exam Time: 7 REPORT STATUS: Signed EXAMINATION: CHEST 2 VIEWS [...] Item B-Type Natriuretic Peptide (test code = 49254-1) 23.5 0-100 [facility] [id number] 03:38:00* Test Item Value Reference Range Interpretation Comments Urine WBC (test code = 5821-4) >50 0-5 [facility] [id number] 03:38:00* Test Item Value Reference Range Interpretation Comments Urine RBC (test code = 25951-8) 6-10 0-5 [facility] Pjnegtoj7097-98-54 03:38:00* Test Item Value Reference Range Interpretation Comments Urine Bacteria (test code = 66758-2) FEW NONE [facility] Epithelial Sxpbv5402-28-10 03:38:00 * Test Item Value Reference Range Interpretation Comments Urine Epithelial Cells (test code = 54367-2) FEW NONE [facility] Transitional Epithelial Cells 2019-01-14 03:38:00* Test Item Value Reference Range Interpretation Comments Urine Transitional Epithelial Cells (test code = 8249-5) MANY NONE [facility] Dxrmq4576-77-18 03:28:00* Test Item Value Reference Range Interpretation Comments Urine Color (test code = 5778-6) YELLOW YELLOW [facility] Gwqetsk4075-54-55 03:28:00* Test Item Value Reference Range Interpretation Comments Urine Clarity (test code = 33994-4) SL CLOUDY CLEAR [facility] Center[facility] Specific Stnejsw0955-74-63 03:28:00 * Test Item Value Reference Range Interpretation Comments Urine Specific Mentor (test code = 5811-5) 1.020 1.010-1.02 5 [facility] Center[facility] [id number] 03:28:00* Test Item Value Reference Range Interpretation Comments Urine pH (test code = 03318-9) 6 5-7 [facility] Leukocyte Aflznybh6725-64-53 03:28:00* Test Item Value Reference Range Interpretation Comments Urine Leukocyte Esterase (test code = 36343-2) MODERATE NEGATIV E [facility] Center[facility] Nbiquas6348-71-17 03:28:00* Test Item Value Reference Range Interpretation Comments Urine Nitrite (test code = 05751-2) NEGATIVE NEGATIVE [facility] Elsfwdd7697-88-39 03:28:00* Test Item Value Reference Range Interpretation Comments Urine Protein (test code = 60594-1) NEGATIVE NEGATIVE [facility] Glucose (UA)2019-01-14 03:28:00* Test Item Value Reference Range Interpretation Comments Urine Glucose (UA) (test code = 53428-4) NEGATIVE NEGATIVE [facility] Center[facility] Wmzgqjc1997-81-82 03:28:00* Test Item Value Reference Range Interpretation Comments Urine Ketones (test code = 80495-4) NEGATIVE NEGATIVE [facility] Clumdcospbfj7063-69-34 03:28:00* Test Item Value Reference Range Interpretation Comments Urine Urobilinogen (test code = 85536-3) 0.2 0.2-1 [facility] Center[facility] Clcxruxft8625-24-77 03:28:00* Test Item Value Reference Range Interpretation Comments Urine Bilirubin (test code = 1977-8) NEGATIVE NEGATIVE [facility] Center[facility] Aysfn8754-01-54 03:28:00* Test Item Value Reference Range Interpretation Comments Urine Blood (test code = 73267-5) NEGATIVE NEGATIVE [facility] CenterCreatine Kinase [id number] 03:28:00* Test Item Value Reference Range Interpretation Comments Creatine Kinase MB (test code = 72143-3) 2.50 0-5.0 [facility] CenterTroponin [id number] 03:28:00* Test Item Value Reference Range Interpretation Comments Troponin I (test code = WYJ9872) 0.004 0-0.300 [facility] Hjghh8491-59-67 03:20:00* Test Item Value Reference Range Interpretation Comments Sodium Level (test code = 2951-2) 139 136-145 [facility] CenterPotassium Zmqzk5495-44-51 03:20:00* Test Item Value Reference Range Interpretation Comments Potassium Level (test code = 2823-3) 4.0 3.5-5.1 [facility] CenterChloride Rdylx7382-05-21 03:20:00* Test Item Value Reference Range Interpretation Comments Chloride Level (test code = 2075-0) 102 98-107 [facility] CenterCarbon Dioxide Gobpy2275-60-59 03:20:00* Test Item Value Reference Range Interpretation Comments Carbon Dioxide Level (test code = 2028-9) 27 22-29 [facility] CenterAnion [id number] 03:20:00* Test Item Value Reference Range Interpretation Comments Anion Gap (test code = 63543-8) 14.0 8-16 [facility] CenterBlood Urea Mzxrxtzb7275-93-63 03:20:00* Test Item Value Reference Range Interpretation Comments Blood Urea Nitrogen (test code = 3094-0) 13 7-26 [facility] CenterCreatinine2019-10-10 03:20:00* Test Item Value Reference Range Interpretation Comments Creatinine (test code = 2160-0) 0.92 0.57-1.11 [facility] CenterBUN/Creatinine Cdmfq6361-13-03 03:20:00* Test Item Value Reference Range Interpretation Comments BUN/Creatinine Ratio (test code = 3097-3) 14 6-25 [facility] CenterEstimat Glomerular Filtration Rate 2019-01-14 03:20:00* Test Item Value Reference Range Interpretation Comments Estimat Glomerular Filtration Rate (test code = 694325387) 60 >60 Ranges were taken from the National Kidney Disease Education Program and the [facility] literature.Reference ranges:60 or greater: Fhlujx63-92 ( for 3 consecutive months): Chronic kidney disease 15 or less: Kidney failureHCA [facility] Healthcare Medical CenterGlucose Xpqah5869-28-19 03:20:00* Test Item Value Reference Range Interpretation Comments Glucose Level (test code = ZTS2535) 127 74-118 [facility] CenterCalcium Mcblm9539-68-23 03:20:00* Test Item Value Reference Range Interpretation Comments Calcium Level (test code = 84253-8) 9.4 8.4-10.2 [facility] CenterLactic Acid Yhnqc9054-75-02 03:20:00* Test Item Value Reference Range Interpretation Comments Lactic Acid Level (test code = Lactic Acid Level) 13.4 4.5- 19.8 [facility] CenterMagnesium Puqlw2969-52-89 03:20:00* Test Item Value Reference Range Interpretation Comments Magnesium Level (test code = 81938-8) 2.2 1.3-2.1 [facility] CenterTotal Uafhwstdc4938-32-05 03:20:00* Test Item Value Reference Range Interpretation Comments Total Bilirubin (test code = 1975-2) 0.4 0.2-1.2 [facility] CenterAspartate Amino Transf (AST/SGOT) 2019-01-14 03:20:00* Test Item Value Reference Range Interpretation Comments Aspartate Amino Transf (AST/SGOT) (test code = Aspartate Amino Transf (AST/SGOT)) 17 5-34 [facility] CenterAlanine Aminotransferase (ALT/SGPT) 2019-01-14 03:20:00* Test Item Value Reference Range Interpretation Comments Alanine Aminotransferase (ALT/SGPT) (test code = 1742-6) 14 0-55 [facility] CenterTotal Lnsbvjl0581-64-49 03:20:00* Test Item Value Reference Range Interpretation Comments Total Protein (test code = 2885-2) 6.7 6.5-8.1 [facility] CenterAlbumin2019-10-10 03:20:00* Test Item Value Reference Range Interpretation Comments Albumin (test code = 1751-7) 3.6 3.5-5.0 [facility] CenterGlobulin2019-10-10 03:20:00* Test Item Value Reference Range Interpretation Comments Globulin (test code = 14374-2) 3.1 2.3-3.5 [facility] CenterAlbumin/Globulin Wgmka8983-78-55 03:20:00 * Test Item Value Reference Range Interpretation Comments Albumin/Globulin Ratio (test code = 1759-0) 1.2 0.8-2.0 [facility] CenterAlkaline Tvbpbkuuvjo4976-56-69 03:20:00* Test Item Value Reference Range Interpretation Comments Alkaline Phosphatase (test code = 6768-6) 47 40-150 [facility] CenterCreatine Eqtyfw1133-29-55 03:20:00* Test Item Value Reference Range Interpretation Comments Creatine Kinase (test code = 2157-6) 151 29-168 [facility] CenterActivated Partial Thromboplast Time 2019-01-14 03:09:00* Test Item Value Reference Range Interpretation Comments Activated Partial Thromboplast Time (test code = 14151-3) 28.9 23.8-35.5 [facility] CenterProthrombin Uqkq3863-22-16 03:07:00* Test Item Value Reference Range Interpretation Comments Prothrombin Time (test code = 5902-2) 11.6 11.9-14.5 [facility] CenterProthromb Time International Ratio 2019-01-14 03:07:00* Test Item Value Reference Range Interpretation Comments Prothromb Time International Ratio (test code = 6301-6) 0.81 Oral Anticoagulant Therapy INR Values:1. Low Intensity Therapy 1.5 - 2.02 . Moderate Intensity Therapy 2.0 - 3.03. High Intensity Therapy(1) 2.5 - 3. 54. High Intensity Therapy(2) 3.0 - 4.05. Panic Value INR > 5.0 [facility] CenterWhite Blood Yuksr2685-78-71 03:04:00* Test Item Value Reference Range Interpretation Comments White Blood Count (test code = 6690-2) 7.86 4.8-10.8 [facility] CenterRed Blood Ekuur3872-33-55 03:04:00* Test Item Value Reference Range Interpretation Comments Red Blood Count (test code = 789-8) 4.38 3.6-5.1 [facility] CenterHemoglobin2019-10-10 03:04:00* Test Item Value Reference Range Interpretation Comments Hemoglobin (test code = 88142-4) 12.6 12.0-16.0 [facility] CenterHematocrit2019-10-10 03:04:00* Test Item Value Reference Range Interpretation Comments Hematocrit (test code = 4544-3) 40.1 34.2-44.1 [facility] CenterMean Corpuscular Ddlpfv9562-14-97 03:04:00* Test Item Value Reference Range Interpretation Comments Mean Corpuscular Volume (test code = 787-2) 91.6 81-99 [facility] CenterMean Corpuscular Knbzdcxavy1138-54-30 03:04:00* Test Item Value Reference Range Interpretation Comments Mean Corpuscular Hemoglobin (test code = 785-6) 28.8 28-32 [facility] CenterMean Corpuscular Hemoglobin Concent 2019-01-14 03:04:00* Test Item Value Reference Range Interpretation Comments Mean Corpuscular Hemoglobin Concent (test code = 786-4) 31.4 31-35 [facility] CenterRed Cell Distribution Nygoj0647-68-84 03:04:00* Test Item Value Reference Range Interpretation Comments Red Cell Distribution Width (test code = 17110-7) 14.1 11.7 -14.4 [facility] CenterPlatelet Ypoki7434-69-95 03:04:00* Test Item Value Reference Range Interpretation Comments Platelet Count (test code = 777-3) 295 140-360 [facility] CenterNeutrophils (%) (Auto)2019-01-14 03:04:00 * Test Item Value Reference Range Interpretation Comments Neutrophils (%) (Auto) (test code = 81544-1) 59.6 38.7-80.0 [facility] CenterLymphocytes (%) (Auto)2019-01-14 03:04:00 * Test Item Value Reference Range Interpretation Comments Lymphocytes (%) (Auto) (test code = 736-9) 26.8 18.0-39.1 [facility] CenterMonocytes (%) (Auto)2019-01-14 03:04:00* Test Item Value Reference Range Interpretation Comments Monocytes (%) (Auto) (test code = 5905-5) 10.9 4.4-11.3 [facility] CenterEosinophils (%) (Auto)2019-01-14 03:04:00 * Test Item Value Reference Range Interpretation Comments Eosinophils (%) (Auto) (test code = 713-8) 1.8 0.0-6.0 [facility] CenterBasophils (%) (Auto)2019-01-14 03:04:00* Test Item Value Reference Range Interpretation Comments Basophils (%) (Auto) (test code = 706-2) 0.5 0.0-1.0 [facility] CenterIM GRANULOCYTES %2019-01-14 03:04:00* Test Item Value Reference Range Interpretation Comments IM GRANULOCYTES % (test code = IM GRANULOCYTES %) 0.4 0.0- 1.0 [facility] CenterNeutrophils # (Auto)2019-01-14 03:04:00* Test Item Value Reference Range Interpretation Comments Neutrophils # (Auto) (test code = 751-8) 4.7 2.1-6.9 [facility] CenterLymphocytes # (Auto)2019-01-14 03:04:00* Test Item Value Reference Range Interpretation Comments Lymphocytes # (Auto) (test code = 80701-1) 2.1 1.0-3.2 [facility] CenterMonocytes # (Auto)2019-01-14 03:04:00* Test Item Value Reference Range Interpretation Comments Monocytes # (Auto) (test code = 742-7) 0.9 0.2-0.8 [facility] CenterEosinophils # (Auto)2019-01-14 03:04:00* Test Item Value Reference Range Interpretation Comments Eosinophils # (Auto) (test code = 711-2) 0.1 0.0-0.4 [facility] CenterBasophils # (Auto)2019-01-14 03:04:00* Test Item Value Reference Range Interpretation Comments Basophils # (Auto) (test code = 704-7) 0.0 0.0-0.1 [facility] CenterAbsolute Immature Granulocyte (auto 2019-01-14 03:04:00* Test Item Value Reference Range Interpretation Comments Absolute Immature Granulocyte (auto (jesse t code = Absolute Immature Granulocyte (auto) 0.03 0-0.1 [facility]
--- NOTE | 2019-08-21 19:08 | Consultation ---
DATE OF CONSULTATION: Pulmonary Critical Care Consultation CHIEF COMPLAINT: Dyspnea and wheezing. REFERRING PHYSICIAN: Angelika Phelps MD HISTORY OF PRESENT ILLNESS: The patient is a 73-year-old woman with a history of COPD. She uses oxygen at home at 2 L as well as maintenance inhalers. She also has a nebulizer that she uses as needed. Over the past week, she has noticed more difficulty breathing. She has increased dyspnea and wheezing. She noticed some cough, but no fevers. She did have some pain on the right side of her chest. When she came to the emergency department, she had several DuoNeb treatments along with Solu-Medrol. She improved with this. She had less dyspnea and her pain resolved. PAST MEDICAL HISTORY: 1. COPD. 2. Hypertension. 3. Rhinitis. PAST SURGICAL HISTORY: Noncontributory. SOCIAL HISTORY: The patient was a prior smoker. She is not an active drinker. ALLERGIES: SHE IS ALLERGIC TO CODEINE. REVIEW OF SYSTEMS: There is no fever. She has no headache. She has no neck pain. She is not complaining of chest pain now although she did have some pain on the right side when she came in. She had wheezing, but that is improved. Her dyspnea is improved. Her +abdomen is not painful. There is no nausea or vomiting. She has no leg edema. PHYSICAL EXAMINATION: VITAL SIGNS: The blood pressure is 112/50 and saturation is 100% on 2 L. Pulse is 85. HEENT: No facial swelling or erythema. CARDIAC: Regular rate and rhythm with normal S1 and S2. LUNGS: Auscultation of the lungs reveals a prolonged expiratory phase bilaterally. There is no wheezing. ABDOMEN: Soft, nontender. There is no rebound or guarding. EXTREMITIES: No leg edema or calf tenderness. There is no cyanosis or clubbing. SKIN: No rashes. NEUROLOGICAL: No focal abnormalities. LABORATORY DATA: White blood cell count is 11.9 and hemoglobin is 11.1. The platelet count is 257,000. BUN to creatinine ratio is 28 to 1.2. The sodium is 135. IMPRESSION: 1. COPD with acute exacerbation. 2. Hypertension. 3. Acute kidney injury. PLAN: 1. Bronchodilators and Solu-Medrol. 2. Antibiotics. 3. Observation in the hospital versus discharge home with close followup. 4. Await chest x-ray report. MD BLAINE Arthur/LORI /[id number]
[2019-08-21] MEDS: SEREVENT 50 MCG INH SCH (19:15)
[2019-08-21] MEDS: BUDESONIDE 90 MCG FLEXHALER IH SCH (19:30)
--- NOTE | 2019-08-21 19:33 | Diagnostic Imaging Report ---
EXAM: CT Chest WITH contrast 08/21/2019 6:50 PM INDICATION: Chest pain COMPARISON: None TECHNIQUE: Chest was scanned utilizing a multidetector helical scanner from the lung apex through the level of the adrenal glands without administration of IV contrast. Coronal and sagittal reformations were obtained. Routine protocol was performed. IV CONTRAST: 100 mL of Omnipaque 300 COMPLICATIONS: None RADIATION DOSE: Total DLP: 620 mGy*cm Estimated effective dose: (DLP x 0.014 x size factor) mSv CTDIvol has been reviewed. It is below the limits set by the Radiation Protocol Committee (RPC). Dose modulation, iterative reconstruction, and/or weight based adjustment of the mA/kV was utilized to reduce the radiation dose to as low as reasonably achievable. FINDINGS: LINES/ TUBES: None. LUNGS AND AIRWAYS: Advanced pulmonary emphysema. Patchy masslike consolidations within the right upper lobe PLEURA: The pleural spaces are clear. HEART AND MEDIASTINUM: The thyroid gland is normal. Mildly enlarged right hilar and mediastinal lymph nodes, notably a 1.2 cm short axis right hilar node. The heart is normal in size. There is no pericardial effusion. No pulmonary artery filling defect. The main pulmonary artery is normal in caliber. UPPER ABDOMEN: Small hiatal hernia. BONES: The visualized bony thorax is within normal limits. SOFT TISSUES: Unremarkable. IMPRESSION: 1. No pulmonary embolus. 2. Advanced pulmonary emphysema. Patchy right upper lobe airspace disease is most suggestive of superimposed pneumonia. Neoplasm may appear similar. A follow-up CT scan in 3 months is recommended for further evaluation. 3. Nonspecific right hilar and mediastinal lymphadenopathy, possibly reactive. Signed by: Rayo Breaux MD on 08/21/2019 7:30 PM
[2019-08-21] MEDS: CEFTRIAXONE SOD 1 GM/NS 50 ML 50 ML IV SCH (19:49)
[2019-08-21] MEDS ORDERED: ZOLPIDEM TARTRATE 5 MG TAB PO PRN (21:00)
[2019-08-21 22:00] VITALS: BP 105/73
[2019-08-21] MEDS: METHYLPREDNISOLONE SOD SUCC 40 MG/ML VIAL 1ML IV SCH (22:36)
[2019-08-21] MEDS: ASPIRIN 325 MG TAB EC PO SCH (22:36)
[2019-08-21 23:00] VITALS: BP 105/73
[2019-08-22] VITALS (9 sets, daily range): BP systolic 101–126; BP diastolic 51–56
--- NOTE | 2019-08-22 03:25 | NUR ---
Informed RT of pt request for breathing treatment and MD orders. RT stated that no RT is assigned to the COVID unit and that pt should not receive nebulizers due to PUI status. Inhaler given to patient d/t above circumstance.
[2019-08-22 05:37] LABS: BASOPHILS % 0.2 % (0.0-1.0); HEMOGLOBIN 10.4 g/dL (12.0-16.0); LYMPHOCYTES # (AUTO) 0.5 (1.0-3.2); LYMPHOCYTES % 6.9 % (18.0-39.1); MEAN CORPUSCULAR HEMOGLOBIN 27.9 pg (28-32); MEAN CORPUSCULAR HGB CONC 30.6 g/dL (31-35); MEAN CORPUSCULAR VOLUME 91.2 fL (81-99); MONOCYTES # (AUTO) 0.2 (0.2-0.8); MONOCYTES % 3.2 % (4.4-11.3); NEUTROPHILS # (AUTO) 5.8 (2.1-6.9); NEUTROPHILS % 89.1 % (38.7-80.0); PLATELET COUNT 253 x10e3/uL (140-360); RED BLOOD COUNT 3.73 x10e6/uL (3.6-5.1); RED CELL DISTRIBUTION WIDTH 13.7 % (11.7-14.4)
[2019-08-22 06:12] LABS: ALANINE AMINOTRANSFERASE 11 IU/L (0-55); ALBUMIN 2.5 g/dL (3.5-5.0); ALBUMIN/GLOBULIN RATIO 0.7 (0.8-2.0); ALKALINE PHOSPHATASE 53 IU/L (40-150); ANION GAP 14.4 mmol/L (8-16); BLOOD UREA NITROGEN 22 mg/dL (7-26); BUN/CREATININE RATIO 28 (6-25); CARBON DIOXIDE 25 mmol/L (22-29); CHLORIDE 104 mmol/L (98-107); CREATININE, SERUM 0.78 mg/dL (0.57-1.11); EST GLOMERULAR FILTRATION RATE > 60 ML/MIN (60-); GLUCOSE 166 mg/dL (74-118); POTASSIUM 4.4 mmol/L (3.5-5.1); SODIUM 139 mmol/L (136-145)
--- NOTE | 2019-08-22 07:15 | NUR ---
Received bedside shift report from night nurse. Patient awake, alert, denies pain at this time. Call light and personal belongings within reach.
[2019-08-22] MEDS: SEREVENT 50 MCG INH SCH ×2 (09:01→20:09)
[2019-08-22] MEDS: BUDESONIDE 90 MCG FLEXHALER IH SCH ×2 (09:01→20:15)
[2019-08-22] MEDS: AZELASTINE HCL 137 MCG NASAL SPRAY NS SCH ×2 (09:02→20:10)
[2019-08-22] MEDS: VERAPAMIL HCL 120 MG TABSR PO SCH (09:34)
[2019-08-22] MEDS: METHYLPREDNISOLONE SOD SUCC 40 MG/ML VIAL 1ML IV SCH ×2 (09:34→21:09)
--- NOTE | 2019-08-22 12:11 | Progress Note ---
DATE: SUBJECTIVE: The patient feels better. She still has some mild dyspnea. She has mild cough. PHYSICAL EXAMINATION: VITAL SIGNS: The patient is afebrile. The blood pressure is 122/56 and the saturation is 96% on 2 L. HEENT: Shows no facial swelling or erythema. CARDIAC: Reveals regular rate and rhythm with normal S1 and S2. LUNGS: Auscultation of lungs reveals clear breath sounds bilaterally. There is no wheezing. ABDOMEN: Soft and nontender. There is no rebound or guarding. EXTREMITIES: Shows no leg edema or calf tenderness. There is no cyanosis or clubbing. SKIN: Shows no rashes. NEUROLOGICAL: Shows no focal abnormalities. RADIOGRAPHIC DATA: CT scan of the chest shows a right upper lobe infiltrate, probably representing pneumonia. The patient also has severe emphysema. IMPRESSION: 1. Chronic obstructive pulmonary disease with acute exacerbation. 2. Community-acquired pneumonia. 3. Hypertension. PLAN: 1. Continue antibiotics. The patient will need a complete course of 7 to 10 days of antibiotics. She can be switched to p.o. antibiotics at discharge. 2. Continue to taper steroids. 3. Bronchodilators. 4. Oxygen. MD BLAINE Arthur/ANYIL /[id number]
--- NOTE | 2019-08-22 16:15 | NUR ---
Called report to Angie IBARRA. Patient transferring to room 111 via wheelchair. All belongings with patient. Home medications at bedside sent with patient. security monitor #[id number] assigned to patient.
--- NOTE | 2019-08-22 17:15 | NUR ---
RCD PT FROM OBS BY WHEEL CHAIR PT IS ALERT AND ORIENTED VITALS CHECKED PT RESTING ON BED BED LOW AND LOCKED CALL LIGHT IN REACH
--- NOTE | 2019-08-22 18:43 | NUR ---
PT RESTING ON BED BED SIDE REPORT GIVEN TO ONCOMING NURSE
[2019-08-22] MEDS ORDERED: AZITHROMYCIN 500MG/NS 250 ML 250 ML IV SCH (19:00)
[2019-08-22] MEDS: CEFTRIAXONE SOD 1 GM/NS 50 ML 50 ML IV SCH (20:10)
[2019-08-22] MEDS ORDERED: SODIUM CHLORIDE 0.9% 250ML 250 ML ONE (20:12)
[2019-08-22] MEDS ORDERED: SIMVASTATIN 20 MG TAB PO SCH (21:00)
[2019-08-22] MEDS: ASPIRIN 325 MG TAB EC PO SCH (21:09)
[2019-08-23 00:04] VITALS: BP 101/60
[2019-08-23 04:00] VITALS: BP 108/58
[2019-08-23] MEDS: SEREVENT 50 MCG INH SCH (07:00)
[2019-08-23] MEDS: AZELASTINE HCL 137 MCG NASAL SPRAY NS SCH (07:00)
[2019-08-23] MEDS: BUDESONIDE 90 MCG FLEXHALER IH SCH (07:00)
[2019-08-23 08:44] VITALS: BP 122/65
--- NOTE | 2019-08-23 08:55 | NUR ---
MD JIMENEZ INTO SEE PT, DISCUSSED DISCHARGE PLANS, AWAITING DR Milton [place] TO ROUND PRIOR TO DISCHARGING
[2019-08-23] MEDS: METHYLPREDNISOLONE SOD SUCC 40 MG/ML VIAL 1ML IV SCH (09:00)
[2019-08-23] MEDS: VERAPAMIL HCL 120 MG TABSR PO SCH (09:00)
[2019-08-23] MEDS ORDERED: MUCINEX600 MG PO (10:17)
[2019-08-23] MEDS ORDERED: AZITHROMYCIN250 MG PO (10:17)
[2019-08-23] MEDS ORDERED: TESSALON PERLE100 MG PO (10:17)
[2019-08-23] MEDS ORDERED: [UNRECOGNIZED DRUG - OTHER] (10:21)
[2019-08-23] MEDS ORDERED: MEDRO DOSE PACK PO (10:23)
--- NOTE | 2019-08-23 10:35 | NUR ---
Pt. expressed no spiritual or emotional concerns at this time. Pt's at bedside. [facility] provided hospitality and information on how to reach prick stitcher, if needed. No need to follow at this time. KENDY HARRINGTON [facility] O: [phone]
[2019-08-23 12:01] VITALS: BP 116/58
--- NOTE | 2019-08-23 12:16 | NUR ---
MD Milton [place] INTO SEE PT, DISCUSSED DISCHARGE INSTRUCTIONS, PT VERBALIZED UNDERSTANDING, AND VOICED SHE WOULD LIKE TO FINISH LUNCH BEFORE DC,
--- NOTE | 2019-08-23 13:06 | NUR ---
WHEELED OFF UNIT VIA WC FOR DISCHARGE, NO CHANGE IN CONDITION
[2019-08-23 13:09] VITALS: BP 122/65
--- NOTE | 2019-08-23 13:55 | Discharge Summary ---
DISCHARGE DIAGNOSES: 1. Chronic obstructive pulmonary disease with acute exacerbation. 2. Right upper lobe pneumonia. RADIOGRAPHIC DATA: Chest CT shows advance pulmonary emphysema. There is patchy right upper lobe airspace disease, most suggestive of superimposed pneumonia. Neoplasm cannot be completely excluded. DISCHARGE MEDICATIONS: 1. Medrol Dosepak. 2. Z-Neymar. 3. Pulmicort 1 puff b.i.d. 4. Serevent 50 mcg two puffs b.i.d. 5. Albuterol rescue inhaler p.r.n. 6. Aspirin 325 mg p.o. daily. 7. Tessalon Perles 100 mg p.o. q. 4 p.r.n. 8. Simvastatin 20 mg p.o. daily. 9. Verapamil 120 mg p.o. daily. HISTORY OF PRESENT ILLNESS: The patient is a 73-year-old woman. She has a history of severe COPD. She uses oxygen at home as well as maintenance inhalers. She came in complaining of worsening dyspnea over the past week. She noted some fevers. HOSPITAL COURSE: The patient was admitted. She received Solu-Medrol and bronchodilators and had improvement. She was also started on antibiotics. A chest x-ray showed a right upper lobe infiltrate. Subsequent CT scan showed a right upper lobe infiltrate and consolidation. The radiologist felt that it was most suggestive of a pneumonia, but could not exclude neoplasm 100%. DISPOSITION: The patient was discharged home. She was feeling better. I reinforced the need to have a repeat CT scan in 6 to 12 weeks to ensure radiographic improvement in the right upper lobe infiltrate. The patient is also scheduled to follow up with me in 10 days. MD BLAINE Arthur/LORI /[id number]
--- NOTE | 2019-08-23 14:25 | Discharge Summary ---
PRIMARY CARE PHYSICIAN: Alex Jackson MD CONSULTING PHYSICIAN: Rodo Lilly MD The patient placed on observation and discharged on observation. FINAL DIAGNOSES: 1. Acute exacerbation of chronic obstructive pulmonary disease. 2. Right upper lobe atypical pneumonia. SUMMARY: The patient is a 73-year-old female, oxygen dependent, but not using oxygen on a regular basis off and on, came in with acute exacerbation of COPD, wheezing. The patient did have a CT scan of the chest showing advanced pulmonary emphysema. Patchy right upper lobe airspace disease, most likely superimposed pneumonia and treated as pneumonia. No pulmonary embolus. The patient is otherwise stable. Wheezing has resolved. The patient is on oxygen. She is doing well, better, almost back to baseline. She did have some flushing with IV steroids, but better now with tapering dosing. The patient is stable, discharged home today. INSTRUCTIONS: 1. Resume home medication. 2. Azithromycin 250 mg daily for 5 days. 3. Tessalon Perles 100 mg q.4 hours p.r.n. for cough. 4. Mucinex 600 mg twice a day for 7 days. 5. Medrol Dosepak tapering dose. The patient is stable, discharged home. Follow up with Dr. Alex Jackson within a week and Dr. Rodo Lilly within 1 to 2 weeks. MD MIGUEL Engle/MODL /[id number]
[2019-08-23] MEDS ORDERED: AZITHROMYCIN 250 MG TAB PO SCH (17:00)
[2019-08-23] MEDS ORDERED: CEFTRIAXONE SOD 1 GM/NS 50 ML 50 ML IV SCH (20:00)
== END 2019-08-23 12:59 | disposition home or self-care (01) ==
LOC: ER 12:25 → ERHOLD 18:30 → IMCU 21:55 → MED/SURG 08-22 17:07
PROVIDERS: ADMIT Internal Medicine Critical Care Medicine; ATTEND Internal Medicine Critical Care Medicine
DX: J44.0 Chronic obstructive pulmonary disease with (acute) lower respiratory infection (principal); J18.9 Pneumonia, unspecified organism; J44.1 Chronic obstructive pulmonary disease with (acute) exacerbation; N17.9 Acute kidney failure, unspecified; I10 Essential (primary) hypertension; E78.00 Pure hypercholesterolemia, unspecified; Z87.891 Personal history of nicotine dependence; Z88.5 Allergy status to narcotic agent; Z99.81 Dependence on supplemental oxygen
CPT/HCPCS: 36415 ×2; 36600; 71045; 71260; 80053 ×2; 82550; 82553; 82805; 83880; 84484; 85025 ×2; 87635; 94640 ×2; 99284; G0378 ×3; J0456; J0696 ×2; J2920 ×3; J2930; J7030; J7050; J7633; Q9967

== ENCOUNTER 2019-12-18 14:58 | Inpatient (IN) | payer OTHER ==
[~2019-12-18] VITALS: Ht 170.2 cm; Wt 81.6 kg
[~2019-12-18 14:58] MED LIST changes: +AZITHROMYCIN250 MG PO; +MEDRO DOSE PACK PO; +MUCINEX600 MG PO; +SIMVASTATIN10 MG; +TESSALON PERLE100 MG PO; +[UNRECOGNIZED DRUG - OTHER]
[2019-12-18] MEDS ORDERED: ACETAMINOPHEN 325 MG TAB PO STA (15:23)
[2019-12-18] MEDS ORDERED: LACTATED RINGER'S 500 ML IV ONE (15:30)
[2019-12-18 16:07] LABS: BILIRUBIN,URINE 1+ (NEGATIVE); CLARITY,URINE CLOUDY (CLEAR); COLOR,URINE YELLOW (YELLOW); KETONES,URINE TRACE (NEGATIVE); LEUKOCYTE ESTERASE ,URINE TRACE (NEGATIVE); NITRITE,URINE NEGATIVE (NEGATIVE); PROTEIN,URINE DIPSTICK 1+ (NEGATIVE)
[2019-12-18 16:46] LABS: BACTERIA,URINE MODERATE /HPF; EPITHELIAL CELLS,URINE MANY /LPF; MUCUS,URINE MANY (RARE)
[2019-12-18] MEDS ORDERED: LACTATED RINGER'S 1,000 ML ONE (16:59)
[2019-12-18 17:03] LABS: BASOPHILS % 0.2 % (0.0-1.0); EOSINOPHILS % 0.2 % (0.0-6.0); HEMOGLOBIN 10.2 g/dL (12.0-16.0); LYMPHOCYTES # (AUTO) 0.8 (1.0-3.2); LYMPHOCYTES % 6.3 % (18.0-39.1); MEAN CORPUSCULAR HEMOGLOBIN 28.7 pg (28-32); MEAN CORPUSCULAR HGB CONC 30.9 g/dL (31-35); MONOCYTES # (AUTO) 1.2 (0.2-0.8); MONOCYTES % 9.5 % (4.4-11.3); NEUTROPHILS # (AUTO) 10.7 (2.1-6.9); NEUTROPHILS % 83.3 % (38.7-80.0); PLATELET COUNT 276 x10e3/uL (140-360); RED BLOOD COUNT 3.55 x10e6/uL (3.6-5.1); RED CELL DISTRIBUTION WIDTH 13.2 % (11.7-14.4)
[2019-12-18 17:41] LABS: ALANINE AMINOTRANSFERASE 8 IU/L (0-55); ALBUMIN 4.1 g/dL (3.5-5.0); ALBUMIN/GLOBULIN RATIO 1.6 (0.8-2.0); ALKALINE PHOSPHATASE 53 IU/L (40-150); ANION GAP 18.8 mmol/L (8-16); BLOOD UREA NITROGEN 13 mg/dL (7-26); BUN/CREATININE RATIO 16 (6-25); CALCIUM 8.9 mg/dL (8.4-10.2); CARBON DIOXIDE 27 mmol/L (22-29); CHLORIDE 95 mmol/L (98-107); CREATININE, SERUM 0.82 mg/dL (0.57-1.11); EST GLOMERULAR FILTRATION RATE > 60 ML/MIN (60-); GLUCOSE 114 mg/dL (74-118); POTASSIUM 3.8 mmol/L (3.5-5.1); SODIUM 137 mmol/L (136-145)
[2019-12-18 19:22] LABS: B-TYPE NATRIURETIC PEPTIDE2 34.7 pg/mL (0-100)
[2019-12-18] MEDS ORDERED: ALBUTEROL/IPRATROPIUM 3 ML NEB NEB ONE (20:15)
[2019-12-18] MEDS ORDERED: ACETAMINOPHEN 325 MG TAB PO PRN (22:00)
[2019-12-18] MEDS ORDERED: ALBUTEROL/IPRATROPIUM 3 ML NEB NEB PRN (22:00)
[2019-12-18 22:39] VITALS: BP 109/52
[2019-12-18 22:41] VITALS: BP 109/52
[2019-12-18 22:46] VITALS: BP 109/52
[2019-12-18 23:58] VITALS: BP 121/57
[2019-12-19] VITALS (7 sets, daily range): BP systolic 99–110; BP diastolic 39–88
[2019-12-19] LABS: CREATINE KINASE MB 1.5 ng/mL (0-5.0)
[2019-12-19] MEDS ORDERED: PULMICORT90 MCG/AER INH (00:59)
[2019-12-19] MEDS ORDERED: CALAN SR180 MG PO (00:59)
[2019-12-19] MEDS ORDERED: VASOTEC10 MG PO (00:59)
[2019-12-19] MEDS ORDERED: HYDROCHLOROTHIA25 MG PO (00:59)
[2019-12-19] MEDS ORDERED: PRESERVISION T1 EACH PO (00:59)
[2019-12-19] MEDS ORDERED: ALBUTEROL2.5 MG/3 M INH (01:10)
[2019-12-19] MEDS ORDERED: IPRATROPIUM BROMIDE (01:15)
[2019-12-19 07:05] LABS: BASOPHILS % 0.2 % (0.0-1.0); EOSINOPHILS % 0.1 % (0.0-6.0); HEMATOCRIT 28.6 % (34.2-44.1); HEMOGLOBIN 9.2 g/dL (12.0-16.0); LYMPHOCYTES # (AUTO) 1.1 (1.0-3.2); LYMPHOCYTES % 7.3 % (18.0-39.1); MEAN CORPUSCULAR HGB CONC 32.2 g/dL (31-35); MEAN CORPUSCULAR VOLUME 93.2 fL (81-99); MONOCYTES # (AUTO) 1.3 (0.2-0.8); MONOCYTES % 8.5 % (4.4-11.3); NEUTROPHILS # (AUTO) 12.8 (2.1-6.9); NEUTROPHILS % 82.7 % (38.7-80.0); PLATELET COUNT 213 x10e3/uL (140-360); RED BLOOD COUNT 3.07 x10e6/uL (3.6-5.1); RED CELL DISTRIBUTION WIDTH 13.3 % (11.7-14.4)
[2019-12-19 07:31] LABS: ALANINE AMINOTRANSFERASE 8 IU/L (0-55); ALBUMIN 3.5 g/dL (3.5-5.0); ALBUMIN/GLOBULIN RATIO 1.5 (0.8-2.0); ALKALINE PHOSPHATASE 47 IU/L (40-150); ANION GAP 13.8 mmol/L (8-16); BLOOD UREA NITROGEN 12 mg/dL (7-26); BUN/CREATININE RATIO 16 (6-25); CALCIUM 8.5 mg/dL (8.4-10.2); CARBON DIOXIDE 28 mmol/L (22-29); CHLORIDE 98 mmol/L (98-107); CREATININE, SERUM 0.73 mg/dL (0.57-1.11); EST GLOMERULAR FILTRATION RATE > 60 ML/MIN (60-); GLUCOSE 103 mg/dL (74-118); POTASSIUM 3.8 mmol/L (3.5-5.1); SODIUM 136 mmol/L (136-145)
[2019-12-19 07:55] LABS: CREATINE KINASE MB 1.4 ng/mL (0-5.0)
[2019-12-19] MEDS ORDERED: BENZONATATE 100 MG CAP PO PRN (09:30)
[2019-12-19] MEDS ORDERED: ONDANSETRON HCL INJ 2MG/ML 2ML 2 MG/ML VIAL IV PRN (09:30)
[2019-12-19] MEDS ORDERED: ACETAMINOPHEN 325 MG TAB PO PRN (09:30)
[2019-12-19] MEDS ORDERED: SODIUM CHLORIDE 0.9% 250ML 250 ML ONE (10:14)
[2019-12-19] MEDS: CEFTRIAXONE SOD 1 GM/NS 50 ML 50 ML IV SCH ×2 (10:23→22:00)
[2019-12-19] MEDS: VERAPAMIL HCL 180 MG TBER PO SCH (10:26)
[2019-12-19] MEDS ORDERED: DOXYCYCLINE HYCLATE TABLET 100 MG TAB PO SCH (10:30)
[2019-12-19] MEDS ORDERED: POTASSIUM CHLORIDE 10MEQ EA PO ONE (10:30)
[2019-12-19] MEDS: METHYLPREDNISOLONE SOD SUCC 40 MG/ML VIAL 1ML IV SCH ×2 (10:31→22:00)
[2019-12-19] MEDS: FLUTICASONE PROPIONATE NASAL SPRAY NS SCH ×2 (11:00→18:05)
[2019-12-19] MEDS ORDERED: FUROSEMIDE INJ 10 MG/ML 4 ML VIAL IV ONE (11:30)
[2019-12-19] MEDS: ALBUTEROL/IPRATROPIUM 3 ML NEB NEB SCH ×2 (13:52→20:05)
[2019-12-19] MEDS: BENZONATATE 100 MG CAP PO SCH ×2 (15:00→21:30)
[2019-12-19 15:13] LABS: CREATINE KINASE MB 2.1 ng/mL (0-5.0)
[2019-12-19] MEDS: OCUVITE PRESERVISION TABLET PO SCH (18:06)
[2019-12-19] MEDS: ENALAPRIL MALEATE 10 MG TAB PO SCH (21:00)
[2019-12-19] MEDS: MONTELUKAST SODIUM 10 MG TAB PO SCH (21:30)
[2019-12-19] MEDS: SIMVASTATIN 20 MG TAB PO SCH (21:30)
[2019-12-20] VITALS (7 sets, daily range): BP systolic 95–127; BP diastolic 48–60
[2019-12-20] MEDS: ALBUTEROL/IPRATROPIUM 3 ML NEB NEB SCH ×4 (00:50→19:40)
[2019-12-20 05:59] LABS: HEMATOCRIT 30.6 % (34.2-44.1); HEMOGLOBIN 9.9 g/dL (12.0-16.0); MEAN CORPUSCULAR HEMOGLOBIN 30.3 pg (28-32); MEAN CORPUSCULAR HGB CONC 32.4 g/dL (31-35); MEAN CORPUSCULAR VOLUME 93.6 fL (81-99); PLATELET COUNT 215 x10e3/uL (140-360); RED BLOOD COUNT 3.27 x10e6/uL (3.6-5.1); RED CELL DISTRIBUTION WIDTH 13.1 % (11.7-14.4)
[2019-12-20 06:46] LABS: ALANINE AMINOTRANSFERASE 10 IU/L (0-55); ALBUMIN 3.6 g/dL (3.5-5.0); ALBUMIN/GLOBULIN RATIO 1.3 (0.8-2.0); ALKALINE PHOSPHATASE 56 IU/L (40-150); ANION GAP 12.9 mmol/L (8-16); BLOOD UREA NITROGEN 18 mg/dL (7-26); BUN/CREATININE RATIO 24 (6-25); CARBON DIOXIDE 30 mmol/L (22-29); CHLORIDE 99 mmol/L (98-107); CREATININE, SERUM 0.74 mg/dL (0.57-1.11); EST GLOMERULAR FILTRATION RATE > 60 ML/MIN (60-); GLUCOSE 160 mg/dL (74-118); POTASSIUM 3.9 mmol/L (3.5-5.1); SODIUM 138 mmol/L (136-145)
[2019-12-20] MEDS: OCUVITE PRESERVISION TABLET PO SCH ×2 (08:21→18:10)
[2019-12-20] MEDS: METHYLPREDNISOLONE SOD SUCC 40 MG/ML VIAL 1ML IV SCH ×2 (08:21→20:20)
[2019-12-20] MEDS: FLUTICASONE PROPIONATE NASAL SPRAY NS SCH ×2 (08:21→18:10)
[2019-12-20] MEDS: BENZONATATE 100 MG CAP PO SCH ×3 (08:21→20:20)
[2019-12-20] MEDS: VERAPAMIL HCL 180 MG TBER PO SCH (08:21)
[2019-12-20] MEDS: DOXYCYCLINE HYCLATE TABLET 100 MG TAB PO SCH ×2 (09:00→18:10)
[2019-12-20] MEDS: CEFTRIAXONE SOD 1 GM/NS 50 ML 50 ML IV SCH ×2 (09:00→22:30)
[2019-12-20 11:48] LABS: BAND NEUTROPHILS % (MANUAL) 1 %; LYMPHOCYTES % (MANUAL) 5 % (19-48); MONOCYTES % (MANUAL) 2 % (3.4-9.0); NEUTROPHILS % (MANUAL) 92 % (40-74)
[2019-12-20 11:49] LABS: PLATELET ESTIMATE ADEQUATE; PLATELET MORPHOLOGY COMMENT NORMAL; RBC MORPHOLOGY COMMENT NORMAL
[2019-12-20] MEDS: ENOXAPARIN SOD INJ 40 MG/0.4 ML SYR SC SCH (18:10)
[2019-12-20] MEDS ORDERED: ONDANSETRON HCL 4 MG ORAL DISINTEGRATING TAB PO PRN (19:00)
[2019-12-20] MEDS: ENALAPRIL MALEATE 10 MG TAB PO SCH (20:20)
[2019-12-20] MEDS: MONTELUKAST SODIUM 10 MG TAB PO SCH (20:20)
[2019-12-20] MEDS: SIMVASTATIN 20 MG TAB PO SCH (20:20)
[2019-12-20] MEDS ORDERED: SODIUM CHLORIDE 0.9% 250ML 250 ML ONE (22:20)
[2019-12-21] VITALS (7 sets, daily range): BP systolic 102–111; BP diastolic 55–61
[2019-12-21] MEDS: ALBUTEROL/IPRATROPIUM 3 ML NEB NEB SCH ×4 (00:57→19:38)
[2019-12-21 05:11] LABS: BASOPHILS % 0.1 % (0.0-1.0); HEMATOCRIT 32.2 % (34.2-44.1); HEMOGLOBIN 9.9 g/dL (12.0-16.0); LYMPHOCYTES # (AUTO) 0.8 (1.0-3.2); MEAN CORPUSCULAR HEMOGLOBIN 28.1 pg (28-32); MEAN CORPUSCULAR HGB CONC 30.7 g/dL (31-35); MEAN CORPUSCULAR VOLUME 91.5 fL (81-99); MONOCYTES # (AUTO) 0.4 (0.2-0.8); MONOCYTES % 2.5 % (4.4-11.3); NEUTROPHILS # (AUTO) 13.7 (2.1-6.9); NEUTROPHILS % 91.8 % (38.7-80.0); PLATELET COUNT 304 x10e3/uL (140-360); RED BLOOD COUNT 3.52 x10e6/uL (3.6-5.1); RED CELL DISTRIBUTION WIDTH 13.1 % (11.7-14.4)
[2019-12-21 05:30] LABS: ANION GAP 17.2 mmol/L (8-16); BLOOD UREA NITROGEN 22 mg/dL (7-26); BUN/CREATININE RATIO 28 (6-25); CALCIUM 8.9 mg/dL (8.4-10.2); CARBON DIOXIDE 29 mmol/L (22-29); CHLORIDE 100 mmol/L (98-107); EST GLOMERULAR FILTRATION RATE > 60 ML/MIN (60-); GLUCOSE 160 mg/dL (74-118); POTASSIUM 4.2 mmol/L (3.5-5.1); SODIUM 142 mmol/L (136-145)
[2019-12-21] MEDS: FLUTICASONE PROPIONATE NASAL SPRAY NS SCH ×2 (08:45→16:59)
[2019-12-21] MEDS: METHYLPREDNISOLONE SOD SUCC 40 MG/ML VIAL 1ML IV SCH (08:45)
[2019-12-21] MEDS: BENZONATATE 100 MG CAP PO SCH ×3 (08:46→20:45)
[2019-12-21] MEDS: DOXYCYCLINE HYCLATE TABLET 100 MG TAB PO SCH ×2 (08:46→16:59)
[2019-12-21] MEDS: VERAPAMIL HCL 180 MG TBER PO SCH (08:46)
[2019-12-21] MEDS: OCUVITE PRESERVISION TABLET PO SCH ×2 (08:46→16:59)
[2019-12-21] MEDS: CEFTRIAXONE SOD 1 GM/NS 50 ML 50 ML IV SCH ×2 (09:38→22:00)
[2019-12-21] MEDS ORDERED: PREDNISONE 20 MG TAB PO ONE (10:30)
[2019-12-21] MEDS: ENOXAPARIN SOD INJ 40 MG/0.4 ML SYR SC SCH (16:59)
[2019-12-21] MEDS: ENALAPRIL MALEATE 10 MG TAB PO SCH (20:45)
[2019-12-21] MEDS: SIMVASTATIN 20 MG TAB PO SCH (20:45)
[2019-12-21] MEDS: MONTELUKAST SODIUM 10 MG TAB PO SCH (20:45)
[2019-12-22] VITALS: BP 93/60
[2019-12-22] MEDS: ALBUTEROL/IPRATROPIUM 3 ML NEB NEB SCH ×3 (01:16→13:05)
[2019-12-22 04:00] VITALS: BP 114/63
[2019-12-22 08:10] VITALS: BP 170/68
[2019-12-22 08:11] VITALS: BP 170/68
[2019-12-22] MEDS: BENZONATATE 100 MG CAP PO SCH (09:00)
[2019-12-22] MEDS ORDERED: PREDNISONE 20 MG TAB PO SCH (09:00)
[2019-12-22] MEDS: OCUVITE PRESERVISION TABLET PO SCH (09:00)
[2019-12-22] MEDS: FLUTICASONE PROPIONATE NASAL SPRAY NS SCH (09:00)
[2019-12-22] MEDS: DOXYCYCLINE HYCLATE TABLET 100 MG TAB PO SCH (09:00)
[2019-12-22] MEDS: VERAPAMIL HCL 180 MG TBER PO SCH (09:00)
[2019-12-22] MEDS: CEFTRIAXONE SOD 1 GM/NS 50 ML 50 ML IV SCH (10:00)
[2019-12-22 12:14] VITALS: BP 124/50
== END 2019-12-22 13:39 | disposition home or self-care (01) | DRG 190 ==
LOC: ER 15:20 → ERHOLD 20:15 → MED/SURG 22:22 → OBSVTOIN 12-20 08:48 → MED/SURG2 12-20 15:45
PROVIDERS: ADMIT Internal Medicine; ATTEND Internal Medicine
DX: J44.0 Chronic obstructive pulmonary disease with (acute) lower respiratory infection (principal); J18.9 Pneumonia, unspecified organism; N39.0 Urinary tract infection, site not specified; J44.1 Chronic obstructive pulmonary disease with (acute) exacerbation; I10 Essential (primary) hypertension; E78.00 Pure hypercholesterolemia, unspecified; Z88.5 Allergy status to narcotic agent; Z99.81 Dependence on supplemental oxygen
CPT/HCPCS: 36415; 71045; 71250; 74230; 80048; 80053; 81001; 82550; 82553; 83605; 83880; 84484; 85007; 85025; 85027; 85379; 87040; 93005; 94640; 97139; 99284; G0378; J0696; J1650; J1940; J2920; J7050; J7120; J7121; J7512; U0002

== ENCOUNTER 2022-09-16 21:58 | Observation (INO) | payer MEDICARE ==
[~2022-09-16] VITALS: Ht 167.6 cm; Wt 81.6 kg
[~2022-09-16 21:58] MED LIST changes: +ALBUTEROL2.5 MG/3 M INH; +ASPIRIN EC81 MG PO; +CALAN SR180 MG PO; +CEFDINIR300 MG PO; +DEXAMETHASONE4 MG PO; +HYDROCHLOROTHIA25 MG PO; +IPRATROPIUM BROMIDE; +MECLIZINE HCL12.5 MG PO; +MEMANTINE HCL5 MG PO; +METOPROLOL TART25 MG PO; +PRESERVISION T1 EACH PO; +PROTONIX40 MG/ML PO; +VASOTEC10 MG PO
[2022-09-16 22:23] LABS: BASOPHILS % 0.6 % (0.0-1.0); EOSINOPHILS # (AUTO) 0.3 (0.0-0.4); EOSINOPHILS % 4.5 % (0.0-6.0); HEMATOCRIT 33.3 % (34.2-44.1); LYMPHOCYTES # (AUTO) 2.4 (1.0-3.2); LYMPHOCYTES % 36.5 % (18.0-39.1); MEAN CORPUSCULAR HEMOGLOBIN 28.7 pg (28-32); MEAN CORPUSCULAR VOLUME 95.4 fL (81-99); MONOCYTES # (AUTO) 0.5 (0.2-0.8); MONOCYTES % 8.1 % (4.4-11.3); NEUTROPHILS # (AUTO) 3.3 (2.1-6.9); NEUTROPHILS % 50.1 % (38.7-80.0); PLATELET COUNT 256 x10e3/uL (140-360); RED BLOOD COUNT 3.49 x10e6/uL (3.6-5.1); RED CELL DISTRIBUTION WIDTH 13.6 % (11.7-14.4)
[2022-09-16 22:40] LABS: ALBUMIN 3.8 g/dL (3.5-5.0); ALBUMIN/GLOBULIN RATIO 1.3 (0.8-2.0); CALCIUM 9.4 mg/dL (8.4-10.2); CREATININE, SERUM 0.98 mg/dL (0.57-1.11)
[2022-09-16 22:48] LABS: CLARITY,URINE SL CLOUDY (CLEAR); COLOR,URINE YELLOW (YELLOW)
[2022-09-16 22:49] LABS: KETONES,URINE 1+ (NEGATIVE); LEUKOCYTE ESTERASE ,URINE TRACE (NEGATIVE); NITRITE,URINE NEGATIVE (NEGATIVE); PROTEIN,URINE DIPSTICK 1+ (NEGATIVE); URINE UROBILINOGEN 0.2 mg/dL (0.2 - 1)
[2022-09-16 22:52] LABS: BACTERIA,URINE FEW /HPF; EPITHELIAL CELLS,URINE MANY /LPF; RBC,URINE 0-5 /HPF (0-5)
[2022-09-16 23:35] VITALS: PULSE 84; RESP 20; O2SAT 100
[2022-09-16 23:52] LABS: ABG PH 7.37 (7.35-7.45)
[2022-09-16 23:53] LABS: ABG HCO3 40 mmol/L (22-26); ABG PCO2 68 mmHg (35-45); ABG PO2 140 mmHg (80-105); ABG TCO2 42
[2022-09-17] VITALS (8 sets, daily range): BP systolic 140–151; BP diastolic 64–73; PULSE 88–109; RESP 16–26; TEMP 97.7–98.1; O2SAT 94–100
[2022-09-17] MEDS ORDERED: CALAN SR180 MG PO (01:04)
[2022-09-17] MEDS ORDERED: ALBUTEROL0.63 MG/3 NEB (01:04)
[2022-09-17] MEDS ORDERED: LOPRESSOR25 MG (01:04)
[2022-09-17] MEDS ORDERED: HYDROCHLOROTHIA25 MG PO (01:04)
[2022-09-17] MEDS ORDERED: vitamin d2 PO (01:04)
[2022-09-17] MEDS ORDERED: NAMENDA5 MG PO (01:04)
[2022-09-17] MEDS ORDERED: PRESERVISION A1 EAC4 PO (01:04)
[2022-09-17 05:52] LABS: BASOPHILS % 0.3 % (0.0-1.0); EOSINOPHILS # (AUTO) 0.3 (0.0-0.4); EOSINOPHILS % 4.3 % (0.0-6.0); HEMATOCRIT 31.7 % (34.2-44.1); HEMOGLOBIN 9.4 g/dL (12.0-16.0); LYMPHOCYTES # (AUTO) 1.8 (1.0-3.2); LYMPHOCYTES % 28.9 % (18.0-39.1); MEAN CORPUSCULAR HEMOGLOBIN 28.2 pg (28-32); MEAN CORPUSCULAR HGB CONC 29.7 g/dL (31-35); MEAN CORPUSCULAR VOLUME 95.2 fL (81-99); MONOCYTES # (AUTO) 0.6 (0.2-0.8); MONOCYTES % 9.5 % (4.4-11.3); NEUTROPHILS # (AUTO) 3.6 (2.1-6.9); NEUTROPHILS % 56.7 % (38.7-80.0); PLATELET COUNT 237 x10e3/uL (140-360); RED BLOOD COUNT 3.33 x10e6/uL (3.6-5.1); RED CELL DISTRIBUTION WIDTH 13.5 % (11.7-14.4)
[2022-09-17 06:20] LABS: ALBUMIN 3.4 g/dL (3.5-5.0); ALBUMIN/GLOBULIN RATIO 1.2 (0.8-2.0); ANION GAP 12.8 mmol/L (8-16); CALCIUM 9.2 mg/dL (8.4-10.2); CREATININE, SERUM 0.84 mg/dL (0.57-1.11); POTASSIUM 3.8 mmol/L (3.5-5.1)
[2022-09-17] MEDS ORDERED: ONDANSETRON HCL INJ 2MG/ML 2ML 2 MG/ML VIAL IV PRN (08:45)
[2022-09-17] MEDS ORDERED: ACETAMINOPHEN 325 MG TAB PO PRN (08:45)
[2022-09-17] MEDS ORDERED: OCUVITE PRESERVISION TABLET PO SCH (09:30)
[2022-09-17] MEDS ORDERED: AZELASTINE HCL 137 MCG NASAL SPRAY NS SCH (09:30)
[2022-09-17] MEDS ORDERED: MEMANTINE 10 MG TAB PO SCH (09:30)
[2022-09-17] MEDS ORDERED: BUDESONIDE 90 MCG FLEXHALER IH SCH (09:30)
[2022-09-17] MEDS ORDERED: DOXYCYCLINE HYCLATE TABLET 100 MG TAB PO SCH (09:30)
[2022-09-17] MEDS ORDERED: PREDNISONE 20 MG TAB PO SCH (09:30)
[2022-09-17] MEDS ORDERED: ALBUTEROL SULF 0.083% NEB SOLN 3 ML NEB NEB SCH (09:30)
[2022-09-17] MEDS ORDERED: VERAPAMIL HCL 180 MG TBER PO SCH (09:30)
[2022-09-17] MEDS: ALBUTEROL SULF 0.083% NEB SOLN 3 ML NEB NEB SCH ×2 (09:30→12:48)
[2022-09-17] MEDS ORDERED: PANTOPRAZOLE SOD 40 MG TABEC PO SCH (09:30)
[2022-09-17] MEDS ORDERED: ONDANSETRON HCL 4 MG ORAL DISINTEGRATING TAB PO PRN (15:00)
[2022-09-17] MEDS ORDERED: ASPIRIN 325 MG TAB EC PO SCH (21:00)
== END 2022-09-17 15:03 | disposition home or self-care (01) ==
LOC: ER 22:09 → ERHOLD 23:30 → MED/SURG 09-17 05:02
PROVIDERS: ADMIT Internal Medicine; ATTEND Internal Medicine
DX: J44.1 Chronic obstructive pulmonary disease with (acute) exacerbation (principal); E87.29 Other acidosis; E87.0 Hyperosmolality and hypernatremia; I10 Essential (primary) hypertension; F01.50 Vascular dementia, unspecified severity, without behavioral disturbance, psychotic disturbance, mood disturbance, and anxiety; Z11.52 Encounter for screening for COVID-19; Z99.81 Dependence on supplemental oxygen; Z86.16 Personal history of COVID-19
CPT/HCPCS: 36415 ×2; 36600; 70450; 71045; 80053 ×2; 81001; 82140; 82550 ×2; 82805; 83880; 84484 ×2; 85025 ×2; 93005; 94640; 94799 ×2; 99284; G0378 ×2; J7512; S0164; U0002; J7633

== ENCOUNTER 2023-04-17 10:13 | Inpatient (IN) | payer MEDICARE ==
[~2023-04-17] VITALS: Ht 167.6 cm; Wt 83.5 kg
[2023-04-17] VITALS (8 sets, daily range): BP systolic 113–150; BP diastolic 66–118; PULSE 92–100; RESP 12–25; TEMP 98.3; O2SAT 94–100
[~2023-04-17 10:13] MED LIST changes: +LOPRESSOR25 MG; +NAMENDA5 MG PO; +PRESERVISION A1 EAC4 PO; +vitamin d2 PO
[2023-04-17] MEDS ORDERED: METHYLPREDNISOLONE SOD SUCC 125 MG/2ML VIAL IV STA (10:28)
[2023-04-17] MEDS ORDERED: SODIUM CHLORIDE 0.9% 1000ML 1,000 ML IV STA (10:28)
[2023-04-17 11:11] LABS: ABG PH 7.29 (7.35-7.45); BASOPHILS % 0.4 % (0.0-1.0); EOSINOPHILS # (AUTO) 0.1 (0.0-0.4); EOSINOPHILS % 1.9 % (0.0-6.0); HEMATOCRIT 33.2 % (34.2-44.1); LYMPHOCYTES # (AUTO) 0.9 (1.0-3.2); LYMPHOCYTES % 16.3 % (18.0-39.1); MEAN CORPUSCULAR HEMOGLOBIN 28.4 pg (28-32); MEAN CORPUSCULAR HGB CONC 27.1 g/dL (31-35); MEAN CORPUSCULAR VOLUME 104.7 fL (81-99); MONOCYTES # (AUTO) 0.5 (0.2-0.8); MONOCYTES % 9.2 % (4.4-11.3); NEUTROPHILS # (AUTO) 3.8 (2.1-6.9); NEUTROPHILS % 71.8 % (38.7-80.0); PLATELET COUNT 204 x10e3/uL (140-360); RED BLOOD COUNT 3.17 x10e6/uL (3.6-5.1); RED CELL DISTRIBUTION WIDTH 12.7 % (11.7-14.4); WHITE BLOOD COUNT 5.22 x10e3/uL (4.8-10.8)
[2023-04-17 11:12] LABS: ABG HCO3 51 mmol/L (22-26); ABG PCO2 104 mmHg (35-45); ABG PO2 84 mmHg (80-105); ABG TCO2 > 50
[2023-04-17 11:25] LABS: INR 0.96
[2023-04-17 11:26] LABS: PARTIAL THROMBOPLASTIN TIME 29.3 seconds (23.8-35.5)
[2023-04-17 11:56] LABS: BILIRUBIN,URINE NEGATIVE (NEGATIVE); CLARITY,URINE CLEAR (CLEAR); COLOR,URINE YELLOW (YELLOW); GLUCOSE, URINE NEGATIVE (NEGATIVE); KETONES,URINE NEGATIVE (NEGATIVE); LEUKOCYTE ESTERASE ,URINE NEGATIVE (NEGATIVE); NITRITE,URINE NEGATIVE (NEGATIVE); PH,URINE 6 (5 - 7); PROTEIN,URINE DIPSTICK 1+ (NEGATIVE); URINE UROBILINOGEN 1 mg/dL (0.2 - 1)
[2023-04-17] MEDS ORDERED: ACETAMINOPHEN 325 MG TAB PO PRN (12:00)
[2023-04-17] MEDS ORDERED: ONDANSETRON HCL INJ 2MG/ML 2ML 2 MG/ML VIAL IV PRN (12:00)
[2023-04-17 12:01] LABS: ALBUMIN 3.4 g/dL (3.5-5.0); ALBUMIN/GLOBULIN RATIO 1.2 (0.8-2.0); BILIRUBIN,TOTAL 0.6 mg/dL (0.2-1.2); CALCIUM 9.1 mg/dL (8.4-10.2); CREATININE, SERUM 0.81 mg/dL (0.57-1.11); MAGNESIUM 1.9 MG/DL (1.3-2.1); TOTAL PROTEIN 6.3 g/dL (6.5-8.1)
[2023-04-17 12:04] LABS: BACTERIA,URINE FEW /HPF; EPITHELIAL CELLS,URINE FEW /LPF; RBC,URINE 21-50 /HPF (0-5); TRANSITIONAL EPI CELLS,URINE FEW
[2023-04-17 12:05] LABS: RENAL EPITHELIAL CELLS,URINE FEW
[2023-04-17 12:07] LABS: TROPONIN I 0.028 ng/mL (0-0.300)
[2023-04-17 12:18] LABS: B-TYPE NATRIURETIC PEPTIDE2 141.1 pg/mL (0-100)
[2023-04-17 14:32] LABS: ABG HCO3 49 mmol/L (22-26); ABG PCO2 92 mmHg (35-45); ABG PH 7.33 (7.35-7.45); ABG PO2 77 mmHg (80-105); ABG TCO2 > 50
[2023-04-17] MEDS: ALBUTEROL/IPRATROPIUM 3 ML NEB NEB SCH ×2 (15:08→22:37)
[2023-04-17] MEDS: SALMETEROL XINAF/FLUTICASONE 250/50 MCG INHALER INH SCH (19:00)
[2023-04-17 21:08] LABS: TROPONIN I 0.015 ng/mL (0-0.300)
[2023-04-17] MEDS: METHYLPREDNISOLONE SOD SUCC 125 MG/2ML VIAL IV SCH (21:37)
[2023-04-17] MEDS: DEXMEDETOMIDINE 400MCG/NS100ML 100 ML IV PRN (23:24)
[2023-04-18] VITALS (47 sets, daily range): BP systolic 95–154; BP diastolic 60–127; PULSE 33–120; RESP 18–35; TEMP 97.8–98.4; O2SAT 68–100
[2023-04-18] MEDS: ALBUTEROL/IPRATROPIUM 3 ML NEB NEB SCH ×4 (00:21→19:24)
[2023-04-18] MEDS: DEXMEDETOMIDINE 400MCG/NS100ML 100 ML IV PRN ×4 (01:52→19:17)
[2023-04-18] MEDS ORDERED: ASPIRIN 81 MG CHEW TAB PO ONE (02:30)
[2023-04-18 02:41] LABS: TROPONIN I 0.014 ng/mL (0-0.300)
[2023-04-18 06:57] LABS: HEMATOCRIT 30.1 % (34.2-44.1); HEMOGLOBIN 8.6 g/dL (12.0-16.0); LYMPHOCYTES # (AUTO) 0.4 (1.0-3.2); LYMPHOCYTES % 8.8 % (18.0-39.1); MEAN CORPUSCULAR HEMOGLOBIN 28.5 pg (28-32); MEAN CORPUSCULAR HGB CONC 28.6 g/dL (31-35); MEAN CORPUSCULAR VOLUME 99.7 fL (81-99); NEUTROPHILS # (AUTO) 3.6 (2.1-6.9); NEUTROPHILS % 89.2 % (38.7-80.0); PLATELET COUNT 185 x10e3/uL (140-360); RED BLOOD COUNT 3.02 x10e6/uL (3.6-5.1); RED CELL DISTRIBUTION WIDTH 12.8 % (11.7-14.4); WHITE BLOOD COUNT 4.07 x10e3/uL (4.8-10.8)
[2023-04-18] MEDS: SALMETEROL XINAF/FLUTICASONE 250/50 MCG INHALER INH SCH ×2 (07:00→19:24)
[2023-04-18 07:21] LABS: ALBUMIN 3.2 g/dL (3.5-5.0); ALBUMIN/GLOBULIN RATIO 1.1 (0.8-2.0); ANION GAP 11.5 mmol/L (8-16); BILIRUBIN,TOTAL 0.6 mg/dL (0.2-1.2); CALCIUM 8.5 mg/dL (8.4-10.2); CHOL/HDL RATIO 2.3 (3.0-3.6); CREATININE, SERUM 0.82 mg/dL (0.57-1.11); POTASSIUM 4.5 mmol/L (3.5-5.1)
[2023-04-18 07:45] LABS: TROPONIN I 0.019 ng/mL (0-0.300)
[2023-04-18] MEDS: METHYLPREDNISOLONE SOD SUCC 125 MG/2ML VIAL IV SCH ×2 (08:06→20:21)
[2023-04-18] MEDS ORDERED: HYDRALAZINE HCL 20 MG/ML VIAL IV PRN (08:45)
[2023-04-18] MEDS ORDERED: DEXTROSE 50% SYRINGE 50 ML IV PRN (08:45)
[2023-04-18] MEDS: PANTOPRAZOLE SOD 40 MG TABEC PO SCH (09:00)
[2023-04-18 09:47] LABS: MAGNESIUM 1.8 MG/DL (1.3-2.1); PHOSPHORUS 2.8 MG/DL (2.3-4.7); THYROID STIMULATING HORMONE 0.355 uIU/mL (0.350-4.940)
[2023-04-18 10:51] LABS: ABG HCO3 45 mmol/L (22-26); ABG PCO2 77 mmHg (35-45); ABG PH 7.37 (7.35-7.45); ABG PO2 101 mmHg (80-105)
[2023-04-18 10:52] LABS: ABG TCO2 47
[2023-04-18] MEDS: INSULIN LISPRO 100 UNIT/1 ML 3ML VIAL SQ SCH ×3 (11:30→20:23)
[2023-04-18] MEDS: ENOXAPARIN SOD INJ 40 MG/0.4 ML SYR SC SCH (16:34)
[2023-04-19] VITALS (36 sets, daily range): BP systolic 100–137; BP diastolic 45–107; PULSE 29–82; RESP 11–42; TEMP 97.7–98.3; O2SAT 91–100
[2023-04-19] MEDS: DEXMEDETOMIDINE 400MCG/NS100ML 100 ML IV PRN ×8 (00:50→23:37)
[2023-04-19] MEDS: ALBUTEROL/IPRATROPIUM 3 ML NEB NEB SCH ×5 (01:40→18:09)
[2023-04-19] MEDS: SALMETEROL XINAF/FLUTICASONE 250/50 MCG INHALER INH SCH ×2 (06:58→19:00)
[2023-04-19 07:19] LABS: BASOPHILS % 0.1 % (0.0-1.0); HEMATOCRIT 28.8 % (34.2-44.1); HEMOGLOBIN 8.5 g/dL (12.0-16.0); LYMPHOCYTES # (AUTO) 0.9 (1.0-3.2); LYMPHOCYTES % 12.5 % (18.0-39.1); MEAN CORPUSCULAR HEMOGLOBIN 28.6 pg (28-32); MEAN CORPUSCULAR HGB CONC 29.5 g/dL (31-35); MONOCYTES # (AUTO) 0.7 (0.2-0.8); MONOCYTES % 9.7 % (4.4-11.3); NEUTROPHILS # (AUTO) 5.3 (2.1-6.9); NEUTROPHILS % 77.1 % (38.7-80.0); PLATELET COUNT 186 x10e3/uL (140-360); RED BLOOD COUNT 2.97 x10e6/uL (3.6-5.1); RED CELL DISTRIBUTION WIDTH 13.1 % (11.7-14.4)
[2023-04-19] MEDS: INSULIN LISPRO 100 UNIT/1 ML 3ML VIAL SQ SCH ×4 (07:30→21:17)
[2023-04-19 07:45] LABS: ALBUMIN 3.2 g/dL (3.5-5.0); ALBUMIN/GLOBULIN RATIO 1.3 (0.8-2.0); ANION GAP 10.1 mmol/L (8-16); BILIRUBIN,TOTAL 0.3 mg/dL (0.2-1.2); CALCIUM 8.4 mg/dL (8.4-10.2); CREATININE, SERUM 0.82 mg/dL (0.57-1.11); POTASSIUM 4.1 mmol/L (3.5-5.1); TOTAL PROTEIN 5.7 g/dL (6.5-8.1)
[2023-04-19] MEDS: MUPIROCIN 2% OINT 22 GM TUBE TOP SCH ×2 (09:08→17:53)
[2023-04-19] MEDS: METHYLPREDNISOLONE SOD SUCC 125 MG/2ML VIAL IV SCH (09:08)
[2023-04-19] MEDS: PANTOPRAZOLE SOD 40 MG TABEC PO SCH (09:09)
[2023-04-19 14:19] LABS: HYPOCHROMASIA SLIGHT; PLATELET ESTIMATE ADEQUATE; PLATELET MORPHOLOGY COMMENT NORMAL; RBC MORPHOLOGY COMMENT NORMAL
[2023-04-19] MEDS: ENOXAPARIN SOD INJ 40 MG/0.4 ML SYR SC SCH (17:53)
[2023-04-19] MEDS: METHYLPREDNISOLONE SOD SUCC 40 MG/ML VIAL 1ML IV SCH (21:14)
[2023-04-20] VITALS (27 sets, daily range): BP systolic 91–139; BP diastolic 40–94; PULSE 53–105; RESP 15–26; TEMP 97.6–98.6; O2SAT 91–100
[2023-04-20] MEDS: ALBUTEROL/IPRATROPIUM 3 ML NEB NEB SCH ×4 (01:24→19:27)
[2023-04-20] MEDS: DEXMEDETOMIDINE 400MCG/NS100ML 100 ML IV PRN ×3 (02:57→11:52)
[2023-04-20] MEDS: SALMETEROL XINAF/FLUTICASONE 250/50 MCG INHALER INH SCH ×2 (07:00→19:00)
[2023-04-20] MEDS: INSULIN LISPRO 100 UNIT/1 ML 3ML VIAL SQ SCH ×4 (07:30→20:41)
[2023-04-20] MEDS: METHYLPREDNISOLONE SOD SUCC 40 MG/ML VIAL 1ML IV SCH ×2 (08:49→20:31)
[2023-04-20] MEDS: PANTOPRAZOLE SOD 40 MG TABEC PO SCH (08:49)
[2023-04-20] MEDS: MUPIROCIN 2% OINT 22 GM TUBE TOP SCH ×2 (08:49→17:49)
[2023-04-20] MEDS: ENOXAPARIN SOD INJ 40 MG/0.4 ML SYR SC SCH (17:49)
[2023-04-20] MEDS: RISPERIDONE 0.5 MG TAB PO PRN (20:31)
[2023-04-20] MEDS ORDERED: ZIPRASIDONE 20 MG VIAL IM ONE (23:15)
[2023-04-21] VITALS (29 sets, daily range): BP systolic 92–163; BP diastolic 50–107; PULSE 61–120; RESP 17–35; TEMP 97.8–98.5; O2SAT 97–100
[2023-04-21] MEDS: DEXMEDETOMIDINE 400MCG/NS100ML 100 ML IV PRN ×4 (01:42→21:52)
[2023-04-21 06:17] LABS: HEMATOCRIT 30.8 % (34.2-44.1); HEMOGLOBIN 9.1 g/dL (12.0-16.0); MEAN CORPUSCULAR VOLUME 94.5 fL (81-99); RED BLOOD COUNT 3.26 x10e6/uL (3.6-5.1); WHITE BLOOD COUNT 7.02 x10e3/uL (4.8-10.8)
[2023-04-21 06:18] LABS: LYMPHOCYTES # (AUTO) 0.4 (1.0-3.2); LYMPHOCYTES % 5.1 % (18.0-39.1); MEAN CORPUSCULAR HEMOGLOBIN 27.9 pg (28-32); MEAN CORPUSCULAR HGB CONC 29.5 g/dL (31-35); MONOCYTES # (AUTO) 0.2 (0.2-0.8); MONOCYTES % 3.4 % (4.4-11.3); NEUTROPHILS # (AUTO) 6.4 (2.1-6.9); NEUTROPHILS % 90.9 % (38.7-80.0); PLATELET COUNT 195 x10e3/uL (140-360)
[2023-04-21 06:49] LABS: ALBUMIN/GLOBULIN RATIO 1.1 (0.8-2.0); ANION GAP 10.1 mmol/L (8-16); BILIRUBIN,TOTAL 0.5 mg/dL (0.2-1.2); CALCIUM 8.7 mg/dL (8.4-10.2); CREATININE, SERUM 0.75 mg/dL (0.57-1.11); POTASSIUM 4.1 mmol/L (3.5-5.1); TOTAL PROTEIN 5.7 g/dL (6.5-8.1)
[2023-04-21] MEDS: SALMETEROL XINAF/FLUTICASONE 250/50 MCG INHALER INH SCH ×2 (07:00→19:13)
[2023-04-21] MEDS: INSULIN LISPRO 100 UNIT/1 ML 3ML VIAL SQ SCH ×4 (07:30→20:16)
[2023-04-21] MEDS: ALBUTEROL/IPRATROPIUM 3 ML NEB NEB SCH ×3 (07:52→19:13)
[2023-04-21] MEDS: PANTOPRAZOLE SOD 40 MG TABEC PO SCH (08:42)
[2023-04-21] MEDS: METHYLPREDNISOLONE SOD SUCC 40 MG/ML VIAL 1ML IV SCH (08:42)
[2023-04-21] MEDS: MUPIROCIN 2% OINT 22 GM TUBE TOP SCH ×2 (08:43→16:53)
[2023-04-21 15:53] LABS: ANION GAP 12.6 mmol/L (8-16); CALCIUM 8.8 mg/dL (8.4-10.2); CREATININE, SERUM 0.76 mg/dL (0.57-1.11); POTASSIUM 3.6 mmol/L (3.5-5.1)
[2023-04-21] MEDS: ENOXAPARIN SOD INJ 40 MG/0.4 ML SYR SC SCH (16:53)
[2023-04-21] MEDS: RISPERIDONE 0.5 MG TAB PO PRN (21:45)
[2023-04-22] VITALS (15 sets, daily range): BP systolic 124–149; BP diastolic 65–122; PULSE 60–87; RESP 12–32; TEMP 97.6–97.9; O2SAT 91–100
[2023-04-22] MEDS: ALBUTEROL/IPRATROPIUM 3 ML NEB NEB SCH ×4 (00:09→19:17)
[2023-04-22] MEDS: DEXMEDETOMIDINE 400MCG/NS100ML 100 ML IV PRN ×5 (00:44→22:16)
[2023-04-22] MEDS: INSULIN LISPRO 100 UNIT/1 ML 3ML VIAL SQ SCH ×4 (07:30→20:58)
[2023-04-22] MEDS: SALMETEROL XINAF/FLUTICASONE 250/50 MCG INHALER INH SCH ×3 (08:05→19:17)
[2023-04-22] MEDS: METHYLPREDNISOLONE SOD SUCC 40 MG/ML VIAL 1ML IV SCH (09:44)
[2023-04-22] MEDS: PANTOPRAZOLE SOD 40 MG TABEC PO SCH (09:57)
[2023-04-22] MEDS: MUPIROCIN 2% OINT 22 GM TUBE TOP SCH ×2 (10:30→16:42)
[2023-04-22] MEDS ORDERED: QUETIAPINE FUMARATE 25 MG TAB PO PRN (12:15)
[2023-04-22] MEDS: ENOXAPARIN SOD INJ 40 MG/0.4 ML SYR SC SCH (16:53)
[2023-04-22] MEDS: QUETIAPINE FUMARATE 25 MG TAB PO SCH ×3 (20:52→23:09)
[2023-04-23] VITALS (33 sets, daily range): BP systolic 101–181; BP diastolic 51–143; PULSE 59–74; RESP 12–26; TEMP 97.1–97.5; O2SAT 90–100
[2023-04-23] MEDS: ALBUTEROL/IPRATROPIUM 3 ML NEB NEB SCH ×4 (01:00→19:15)
[2023-04-23] MEDS: DEXMEDETOMIDINE 400MCG/NS100ML 100 ML IV PRN ×6 (04:51→22:27)
[2023-04-23] MEDS: SALMETEROL XINAF/FLUTICASONE 250/50 MCG INHALER INH SCH ×2 (07:22→19:15)
[2023-04-23] MEDS: INSULIN LISPRO 100 UNIT/1 ML 3ML VIAL SQ SCH ×4 (07:30→20:03)
[2023-04-23] MEDS: PANTOPRAZOLE SOD 40 MG TABEC PO SCH (09:21)
[2023-04-23] MEDS: MUPIROCIN 2% OINT 22 GM TUBE TOP SCH ×2 (09:22→17:52)
[2023-04-23] MEDS: METHYLPREDNISOLONE SOD SUCC 40 MG/ML VIAL 1ML IV SCH (09:22)
[2023-04-23] MEDS: ENOXAPARIN SOD INJ 40 MG/0.4 ML SYR SC SCH (17:51)
[2023-04-23] MEDS: QUETIAPINE FUMARATE 25 MG TAB PO SCH (20:02)
[2023-04-24] VITALS (34 sets, daily range): BP systolic 109–165; BP diastolic 46–80; PULSE 57–149; RESP 14–27; TEMP 97–98.6; O2SAT 96–100
[2023-04-24] MEDS: ALBUTEROL/IPRATROPIUM 3 ML NEB NEB SCH ×4 (01:00→19:33)
[2023-04-24] MEDS: DEXMEDETOMIDINE 400MCG/NS100ML 100 ML IV PRN ×3 (01:48→09:25)
[2023-04-24] MEDS: SALMETEROL XINAF/FLUTICASONE 250/50 MCG INHALER INH SCH ×2 (07:03→19:33)
[2023-04-24] MEDS: INSULIN LISPRO 100 UNIT/1 ML 3ML VIAL SQ SCH ×4 (07:30→21:00)
[2023-04-24] MEDS: PANTOPRAZOLE SOD 40 MG TABEC PO SCH (09:16)
[2023-04-24] MEDS: METHYLPREDNISOLONE SOD SUCC 40 MG/ML VIAL 1ML IV SCH (09:16)
[2023-04-24] MEDS: ENOXAPARIN SOD INJ 40 MG/0.4 ML SYR SC SCH (17:00)
[2023-04-24] MEDS: QUETIAPINE FUMARATE 25 MG TAB PO SCH (21:18)
[2023-04-24] MEDS ORDERED: AMIODARONE 900MG 900 MG in Premix Bag 1 BAG IV SCH (22:30)
[2023-04-24] MEDS ORDERED: AMIODARONE HCL 150 MG/100 ML BAG IV ONE (22:30)
[2023-04-24] MEDS ORDERED: AMIODARONE 900MG 500 ML IV ONE (22:44)
[2023-04-25] VITALS (11 sets, daily range): BP systolic 129–163; BP diastolic 49–56; PULSE 97–130; RESP 19–29; TEMP 98.5; O2SAT 95–100
[2023-04-25] MEDS: ALBUTEROL/IPRATROPIUM 3 ML NEB NEB SCH ×2 (01:00→07:55)
[2023-04-25] MEDS: INSULIN LISPRO 100 UNIT/1 ML 3ML VIAL SQ SCH (07:30)
[2023-04-25] MEDS: SALMETEROL XINAF/FLUTICASONE 250/50 MCG INHALER INH SCH (07:55)
[2023-04-25] MEDS: METHYLPREDNISOLONE SOD SUCC 40 MG/ML VIAL 1ML IV SCH (08:56)
[2023-04-25] MEDS: PANTOPRAZOLE SOD 40 MG TABEC PO SCH (08:57)
[2023-04-25] MEDS ORDERED: AMIODARONE HCL 200 MG TAB PO SCH (09:00)
== END 2023-04-25 10:21 | disposition home or self-care (01) | DRG 190 ==
LOC: ER 10:17 → ERHOLD 12:07 → ICU 20:41
PROVIDERS: ADMIT Internal Medicine; ATTEND Internal Medicine
PROC: 4A033R1 Measurement of Arterial Saturation, Peripheral, Percutaneous Approach (ICD-10-PCS; principal; 2023-04-17)
PROC: 02HV33Z Insertion of Infusion Device into Superior Vena Cava, Percutaneous Approach (ICD-10-PCS; 2023-04-17)
PROC: B548ZZA Ultrasonography of Superior Vena Cava, Guidance (ICD-10-PCS; 2023-04-17)
PROC: 5A09357 Assistance with Respiratory Ventilation, Less than 24 Consecutive Hours, Continuous Positive Airway Pressure (ICD-10-PCS; 2023-04-17)
DX: J44.1 Chronic obstructive pulmonary disease with (acute) exacerbation (principal); G93.41 Metabolic encephalopathy; J96.22 Acute and chronic respiratory failure with hypercapnia; J43.9 Emphysema, unspecified; G30.9 Alzheimer's disease, unspecified; Z66 Do not resuscitate; Z51.5 Encounter for palliative care; F02.80 Dementia in other diseases classified elsewhere, unspecified severity, without behavioral disturbance, psychotic disturbance, mood disturbance, and anxiety; R62.7 Adult failure to thrive; D50.9 Iron deficiency anemia, unspecified; R73.9 Hyperglycemia, unspecified; R53.81 Other malaise; F01.50 Vascular dementia, unspecified severity, without behavioral disturbance, psychotic disturbance, mood disturbance, and anxiety; E66.01 Morbid (severe) obesity due to excess calories; Z99.81 Dependence on supplemental oxygen; Z87.891 Personal history of nicotine dependence; Z79.82 Long term (current) use of aspirin; Z79.899 Other long term (current) drug therapy; Z68.29 Body mass index [BMI] 29.0-29.9, adult; Z20.822 Contact with and (suspected) exposure to COVID-19
CPT/HCPCS: 36415; 36569; 36600; 51700; 70450; 71045; 80048; 80053; 80061; 81001; 82550; 82607; 82805; 82948; 83036; 83540; 83605; 83735; 83880; 84100; 84443; 84466; 84484; 85025; 85610; 85730; 87040; 87086; 87400; 87420; 93005; 94660; 94664; 94799; 96372; 99252; 99284; J0696; J1650; J2405; J2920; J2930; J3486; J7030; J7050; U0002